=== PATIENT | female | born 1940 | race Caucasian/White ===

== ENCOUNTER → 2017-01-05 | Outpatient (CLI) | payer MEDICARE, OTHER ==
--- NOTE | 2017-01-10 10:58 | MM ---
Reason for exam: screening (asymptomatic). Last mammogram was performed 6 years and 4 months ago. History: Patient is postmenopausal. Physical Findings: A clinical breast exam by your physician is recommended on an annual basis and results should be correlated with mammographic findings. MG 3D Screening Mammo W/Cad Bilateral CC and MLO view(s) were taken. Prior study comparison: September 07, 2010, mammogram, performed at [facility]. May 13, 2009, mammogram, performed at [facility]. There are scattered fibroglandular densities. No significant changes when compared with prior studies. ASSESSMENT: Negative, BI-RAD 1 RECOMMENDATION: Routine screening mammogram of both breasts in 1 year.
== END | disposition home or self-care (01) ==
LOC: RADMAMWWP 10:54
PROVIDERS: ATTEND Family Medicine
DX: Z12.31 Encounter for screening mammogram for malignant neoplasm of breast (principal)
CPT/HCPCS: 77063; G0202

== ENCOUNTER 2017-03-21 15:14 | Emergency (ER) | payer MEDICARE, OTHER ==
[2017-03-21] MEDS ORDERED: ONDANSETRON 4 MG/2 ML VIAL IVP STA (16:55)
[2017-03-21] MEDS ORDERED: HYDROmorphone 1 MG/ML 1 ML SYRINGE IVP STA (16:55)
[2017-03-21] MEDS ORDERED: SODIUM CHLORIDE 0.9% 1,000 ML IV STA ×2 (16:55)
--- NOTE | 2017-03-21 17:16 | ED ---
General Adult HPI - General Source: patient, family, RN notes reviewed Mode of arrival: wheelchair Limitations: no limitations <Wilmer Trivedi - Last Filed: 03/21/17 19:41> <Chay Archer - Last Filed: 03/21/17 20:18> - General Chief complaint: Back Pain/Injury Stated complaint: Lower right back pain/SOB Time Seen by Provider: 03/21/17 16:51 - History of Present Illness Initial comments: Patient is a 76-year-old female who presents emergency room today with a chief complaint of increased right-sided lower back pain that began last night. She admits that she began to feel a discomfort last night. She states it increased greatly this one. She does admit that is worse with any movement. Denies any other symptoms or complaints. She denies any other associated symptoms at this time.Patient denies any recent fever, chills, shortness of breath, chest pain, numbness or tingling, dysuria or hematuria, constipation or diarrhea, headaches or visual changes, or any other complaints. (Wilmer Trivedi) - Related Data Home Medications Medication Instructions Recorded Confirmed Aspirin EC [Ecotrin Low Dose] 81 mg PO DAILY 03/21/17 03/21/17 Docusate [Colace] 100 mg PO DAILY 03/21/17 03/21/17 Losartan [Cozaar] 50 mg PO DAILY 03/21/17 03/21/17 Previous Rx's Medication Instructions Recorded Ciprofloxacin HCl [Cipro] 500 mg PO Q12HR #20 day 03/21/17 Ibuprofen [Motrin] 600 mg PO Q6HR PRN #20 day 03/21/17 Allergies Allergy/AdvReac Type Severity Reaction Status Date / Time No Known Allergies Allergy Verified 03/21/17 17:15 Review of Systems ROS Other: All systems not noted in ROS Statement are negative. <Wilmer Trivedi - Last Filed: 03/21/17 19:41> ROS Other: All systems not noted in ROS Statement are negative. <Chay Archer - Last Filed: 03/21/17 20:18> ROS Statement: Those systems with pertinent positive or pertinent negative responses have been documented in the HPI. Past Medical History Past Medical History: Hypertension History of Any Multi-Drug Resistant Organisms: None Reported Past Surgical History: Bladder Surgery, Hysterectomy Past Psychological History: No Psychological Hx Reported Smoking Status: Never smoker Past Alcohol Use History: None Reported Past Drug Use History: None Reported <Wilmer Trivedi - Last Filed: 03/21/17 19:41> General Exam Limitations: no limitations <FarooqWilmer - Last Filed: 03/21/17 19:41> <Chay Archer - Last Filed: 03/21/17 20:18> - General Exam Comments Initial Comments: General: The patient is awake and alert, in no distress, and does not appear acutely ill. Eye: Pupils are equal, round and reactive to light, extra-ocular movements are intact. No nystagmus. There is normal conjunctiva bilaterally. No signs of icterus. Ears, nose, mouth and throat: There are moist mucous membranes and no oral lesions. Neck: The neck is supple, there is no tenderness or JVD. Cardiovascular: There is a regular rate and rhythm. No murmur, rub or gallop is appreciated. Respiratory: Lungs are clear to auscultation, respirations are non-labored, breath sounds are equal. No wheezes, stridor, rales, or rhonchi. Gastrointestinal: Normal appearance for abdomen. Normal bowel sounds. Abdomen soft on palpation. No pulsatile mass. Patient tender in epigastric, right upper quadrant, right lower quadrant on exam. No rebound tenderness. Guarding. Mild right-sided CVA tenderness. Musculoskeletal: Normal ROM, no tenderness. Strength 5/5. Sensation intact. Pulses equal bilaterally 2+. Neurological: A&O x 3. CN II-XII intact, There are no obvious motor or sensory deficits. Coordination appears grossly intact. Speech is normal. Skin: Skin is warm and dry and no rashes or lesions are noted. Psychiatric: Cooperative, appropriate mood & affect, normal judgment. (Farooq Wilmer) Course <FarooqWilmer - Last Filed: 03/21/17 19:41> <Chay Archer - Last Filed: 03/21/17 20:18> Vital Signs 03/21/17 03/21/17 15:33 19:56 Temperature 97.7 F 97.0 F L Pulse Rate 79 64 Respiratory 18 16 Rate Blood Pressure 180/86 133/68 O2 Sat by Pulse 97 98 Oximetry - Reevaluation(s) Reevaluation #1: 03/21/17 20:17 I did do a [id number] examination the patient did discuss findings with her and her family. Patient has a reproducible pain to palpation of the right SI joint area. Patient initially did not get much relief the medication was rendered she was given Toradol shot which did help the pain. Her presentation is consistent with musculoskeletal pain as well as a UTI. 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 Patient will be discharged on appropriate medication with follow-up with her doctor and return when necessary (Chay Archer) Medical Decision Making - Lab Data Result diagrams: 03/21/17 17:21 03/21/17 17:21 <Wilmer Trivedi - Last Filed: 03/21/17 19:41> - Lab Data Result diagrams: 03/21/17 17:21 03/21/17 17:21 <Chay Archer - Last Filed: 03/21/17 20:18> - Medical Decision Making His x-ray reviewed and is unremarkable for any acute abnormalities. Results were discussed with the patient. Labs been reviewed. Patient's urinalysis does show positive nitrate with white cells. Has been given a dose of Rocephin here in the emergency room. Case was discussed with attending physician and seen at bedside by Dr. Archer. Patient advised follow-up family doctor in the next 1-2 days. (Wilmer Trivedi) - Lab Data Lab Results 03/21/17 03/21/17 03/21/17 Range/Units 17:21 17:21 17:21 WBC 9.6 (3.8-10.6) k/uL RBC 4.64 (3.80-5.40) m/uL Hgb 14.5 (11.4-16.0) gm/dL Hct 43.2 (34.0-46.0) % MCV 93.1 (80.0-100.0) fL MCH 31.2 (25.0-35.0) pg MCHC 33.5 (31.0-37.0) g/dL RDW 13.4 (11.5-15.5) % Plt Count 242 (150-450) k/uL Neutrophils % 66 % Lymphocytes % 27 % Monocytes % 4 % Eosinophils % 2 % Basophils % 1 % Neutrophils # 6.3 (1.3-7.7) k/uL Lymphocytes # 2.6 (1.0-4.8) k/uL Monocytes # 0.3 (0-1.0) k/uL Eosinophils # 0.2 (0-0.7) k/uL Basophils # 0.1 (0-0.2) k/uL Sodium 139 (137-145) mmol/L Potassium 4.7 (3.5-5.1) mmol/L Chloride 109 H (98-107) mmol/L Carbon Dioxide 23 (22-30) mmol/L Anion Gap 7 mmol/L BUN 23 H (7-17) mg/dL Creatinine 1.06 H (0.52-1.04) mg/dL Est GFR (MDRD) Af Amer >60 (>60 ml/min/1.73 sqM) Est GFR (MDRD) Non-Af 50 (>60 ml/min/1.73 sqM) Glucose 92 (74-99) mg/dL Plasma Lactic Acid Rio 1.1 (0.7-2.0) mmol/L Calcium 10.2 (8.4-10.2) mg/dL Total Bilirubin 0.5 (0.2-1.3) mg/dL AST 17 (14-36) U/L ALT 20 (9-52) U/L Alkaline Phosphatase 73 (38-126) U/L Total Protein 7.3 (6.3-8.2) g/dL Albumin 4.2 (3.5-5.0) g/dL Amylase 69 (30-110) U/L Lipase 76 (23-300) U/L Urine Color Urine Appearance (Clear) Urine pH (5.0-8.0) Ur Specific [place] (1.001-1.035) Urine Protein (Negative) Urine Glucose (UA) (Negative) Urine Ketones (Negative) Urine Blood (Negative) Urine Nitrite (Negative) Urine Bilirubin (Negative) Urine Urobilinogen (<2.0) mg/dL Ur Leukocyte Esterase (Negative) Urine RBC (0-5) /hpf Urine WBC (0-5) /hpf Urine Bacteria (None) /hpf Hyaline Casts (0-2) /lpf 03/21/17 Range/Units 17:30 WBC (3.8-10.6) k/uL RBC (3.80-5.40) m/uL Hgb (11.4-16.0) gm/dL Hct (34.0-46.0) % MCV (80.0-100.0) fL MCH (25.0-35.0) pg MCHC (31.0-37.0) g/dL RDW (11.5-15.5) % Plt Count (150-450) k/uL Neutrophils % % Lymphocytes % % Monocytes % % Eosinophils % % Basophils % % Neutrophils # (1.3-7.7) k/uL Lymphocytes # (1.0-4.8) k/uL Monocytes # (0-1.0) k/uL Eosinophils # (0-0.7) k/uL Basophils # (0-0.2) k/uL Sodium (137-145) mmol/L Potassium (3.5-5.1) mmol/L Chloride (98-107) mmol/L Carbon Dioxide (22-30) mmol/L Anion Gap mmol/L BUN (7-17) mg/dL Creatinine (0.52-1.04) mg/dL Est GFR (MDRD) Af Amer (>60 ml/min/1.73 sqM) Est GFR (MDRD) Non-Af (>60 ml/min/1.73 sqM) Glucose (74-99) mg/dL Plasma Lactic Acid [place] (0.7-2.0) mmol/L Calcium (8.4-10.2) mg/dL Total Bilirubin (0.2-1.3) mg/dL AST (14-36) U/L ALT (9-52) U/L Alkaline Phosphatase (38-126) U/L Total Protein (6.3-8.2) g/dL Albumin (3.5-5.0) g/dL Amylase (30-110) U/L Lipase (23-300) U/L Urine Color Light Yellow Urine Appearance Clear (Clear) Urine pH 6.0 (5.0-8.0) Ur Specific [place] 1.004 (1.001-1.035) Urine Protein Negative (Negative) Urine Glucose (UA) Negative (Negative) Urine Ketones Negative (Negative) Urine Blood Negative (Negative) Urine Nitrite Positive H (Negative) Urine Bilirubin Negative (Negative) Urine Urobilinogen <2.0 (<2.0) mg/dL Ur Leukocyte Esterase Moderate H (Negative) Urine RBC <1 (0-5) /hpf Urine WBC 9 H (0-5) /hpf Urine Bacteria Moderate H (None) /hpf Hyaline Casts 1 (0-2) /lpf Disposition Time of Disposition: 19:42 <Wilmer Trivedi - Last Filed: 03/21/17 19:41> <Chay Archer - Last Filed: 03/21/17 20:18> Clinical Impression: UTI (urinary tract infection), Acute low back pain Disposition: HOME SELF-CARE Condition: Good Instructions: Acute Low Back Pain (ED) Additional Instructions: Please use medication as discussed. Please follow-up with family doctor in the next 2 days of symptoms have not improved. Please return to emergency room if the symptoms increase or worsen or for any other concerns. Prescriptions: Ciprofloxacin HCl [Cipro] 500 mg PO Q12HR #20 day Ibuprofen [Motrin] 600 mg PO Q6HR PRN #20 day PRN Reason: Pain Referrals: Roz Saleem MD [Primary Care Provider] - 1-2 days
[2017-03-21 17:37] LABS: Basophils # (A) 0.1 k/uL (0-0.2); Basophils % (A) 1 %; CHCM 34.5; Eosinophils # (A) 0.2 k/uL (0-0.7); Eosinophils % (A) 2 %; HCT 43.2 % (34.0-46.0); HDW 2.51; HGB 14.5 gm/dL (11.4-16.0); Luc # (Auto) 0.15; Luc % (Auto) 2; Lymphocytes # (A) 2.6 k/uL (1.0-4.8); Lymphocytes % (A) 27 %; MCH 31.2 pg (25.0-35.0); MCHC 33.5 g/dL (31.0-37.0); MCV 93.1 fL (80.0-100.0); Mean Platelet Volume 6.7; Monocytes # (A) 0.3 k/uL (0-1.0); Monocytes % (A) 4 %; Neutrophils # (A) 6.3 k/uL (1.3-7.7); Neutrophils % (A) 66 %; RBC 4.64 m/uL (3.80-5.40); RDW 13.4 % (11.5-15.5); WBC 9.6 k/uL (3.8-10.6); WBC (Perox) 9.77
[2017-03-21 17:44] LABS: ALT 20 U/L (9-52); AST 17 U/L (14-36); Alkaline Phosphatase 73 U/L (38-126); Amylase 69 U/L (30-110); Anion Gap 7 mmol/L; Blood Urea Nitrogen 23 mg/dL (7-17); Calcium 10.2 mg/dL (8.4-10.2); Carbon Dioxide 23 mmol/L (22-30); Chloride 109 mmol/L (98-107); Glucose 92 mg/dL (74-99); Non-African American GFR(MDRD) 50 (>60 ml/min/1.73 sqM); Potassium 4.7 mmol/L (3.5-5.1); Sodium 139 mmol/L (137-145); Total Bilirubin 0.5 mg/dL (0.2-1.3); Total Protein 7.3 g/dL (6.3-8.2)
[2017-03-21 17:55] LABS: Appearance,Urine Clear (Clear); Bacteria,Urine Moderate /hpf; Bilirubin,Urine Negative (Negative); Glucose,Urine (UA) Negative (Negative); Ketones,Urine Negative (Negative); Leukocyte Esterase,Urine Moderate (Negative); Nitrite,Urine Positive (Negative); Particle Count 16917; Protein,Urine Negative (Negative); RBC,Urine <1 /hpf (0-5); Specific Gravity,Urine 1.004 (1.001-1.035); UA Billing (MACRO vs. MICRO) MICRO; Urobilinogen,Urine <2.0 mg/dL (<2.0); WBC,Urine 9 /hpf (0-5)
--- NOTE | 2017-03-21 17:57 | XR ---
EXAMINATION TYPE: XR KUB DATE OF EXAM: 03/21/2017 5:54 PM COMPARISON: NONE HISTORY: Right-sided abdominal pain TECHNIQUE: 2 views FINDINGS: There is no sign of intestinal obstruction or pneumoperitoneum. Fecal pattern is normal. Th ere are clips from cholecystectomy. There is no sign of a mass. There is mild thoracolumbar levoscoli osis. IMPRESSION: Nonacute abdomen.
[2017-03-21] MEDS ORDERED: RX INFO: IV CONTRAST WAS GIVEN 1 EACH MISC MISCELLANE PRN (18:17)
--- NOTE | 2017-03-21 19:23 | CT ---
EXAMINATION TYPE: CT abdomen pelvis w con DATE OF EXAM: 03/21/2017 6:54 PM COMPARISON: NONE HISTORY: Right flank pain today. CT DLP: 469.60 mGycm Automated exposure control for dose reduction was used. TECHNIQUE: Helical acquisition of images was performed from the lung bases through the pelvis. CONTRAST: Performed without Oral Contrast and with IV Contrast, patient injected with 80 mL of Visipaque 320. FINDINGS: Lung bases are clear of consolidation. There is mild subsegmental atelectasis at the posterior lung b ases. There is no pleural effusion. Liver spleen pancreas appear normal. There are clips from cholecystectomy. Bile ducts are not dilated . There is no adrenal mass. Kidneys show satisfactory contrast opacification. There is no hydronephro sis. There is no retroperitoneal adenopathy. Abdominal aorta is atheromatous. There is no ascites. Th ere are a few sigmoid diverticula. There is no sign of diverticulitis. Bladder distends smoothly. I s ee no pelvic mass. Appendix is not seen. There is no sign of appendicitis. Bony structures are intact . IMPRESSION: NO EVIDENCE OF RENAL STONE OR OBSTRUCTION. ATHEROSCLEROTIC VASCULAR DISEASE. I DO NOT SEE A CAUSE FOR RIGHT FLANK PAIN.
[2017-03-21] MEDS ORDERED: KETOROLAC 30 MG/ML 1 ML VIAL IVP STA (19:41)
[2017-03-21 20:02] VITALS: BP 133/68; PULSE 64; RESP 16; TEMP 97
[2017-03-21] MEDS ORDERED: IBUPROFEN 600 MG STARTER PACK 4 TAB BTL PO STA (20:07)
== END 2017-03-21 20:16 | disposition home or self-care (01) ==
LOC: EC 15:14
DX: N39.0 Urinary tract infection, site not specified (principal); M54.5 Low back pain; I10 Essential (primary) hypertension; Z79.82 Long term (current) use of aspirin; Z79.899 Other long term (current) drug therapy; Z90.710 Acquired absence of both cervix and uterus; Z98.890 Other specified postprocedural states
CPT/HCPCS: 36415; 80053; 82150; 83605; 83690; 85025; 81001; 87086; 74000; 74177; 99284; 96365; 96375 ×3; 96361 ×2; Q9967; J2405; J0696; J1885; J1170; 87077; 87186

== ENCOUNTER → 2020-01-08 | Outpatient (CLI) | payer MEDICARE ==
--- NOTE | 2020-01-08 12:08 | FL ---
MODIFIED SWALLOW / DEGLUTITION STUDY DATE OF EXAM: 01/08/2020 CLINICAL HISTORY: 79-year-old female with dysphasia, weakness, coughing. TECHNIQUE: Deglutition study is performed utilizing thin liquid barium, barium pudding, and barium c oated cracker. Total fluoroscopy time: 3 minutes 53 seconds. Total images: None. Real-time fluoroscopy support was provided to speech pathology. COMPARISON: None. FINDINGS: Swallow initiation was mildly delayed. The oral phase shows tongue pumping and delayed AP transit. There is aspiration of pureed and solid consistencies with blunted cough reflex. No penetration or as piration is seen of the liquid. We do note some intraesophageal reflux and there was an episode of emesis/retching. Mild residuals. IMPRESSION: 1. Aspiration of pureed and solid consistencies with blunted cough reflex. 2. Mildly delayed swallow initiation and some tongue pumping resulting in prolonged AP transit in the oral phase. 3. Some intraesophageal reflux is noted with an episode of emesis/retching. Consider esophagram to fu rther evaluate esophageal motility and exclude any stricture or gastroesophageal reflux/hiatal hernia . Please refer to speech therapist notes for further details if necessary.
== END | disposition home or self-care (01) ==
LOC: RADFLMAIN 10:20
PROVIDERS: ATTEND Family Medicine
DX: K21.9 Gastro-esophageal reflux disease without esophagitis (principal)
CPT/HCPCS: 74230

== ENCOUNTER 2021-07-02 07:42 | Inpatient (IN) | payer MEDICARE ==
[2021-07-02] MEDS ORDERED: ACETAMINOPHEN TAB 325 MG TAB PO STA (07:52)
--- NOTE | 2021-07-02 08:39 | XR ---
EXAMINATION TYPE: XR ankle complete RT DATE OF EXAM: 07/02/2021 COMPARISON: NONE HISTORY: 80-year-old female pain after falling TECHNIQUE: 3 views FINDINGS: Soft tissue swelling circumferentially at the ankle. Vascular calcifications suggest underlying diabe alli and chronic kidney disease. There is a vague vertically oriented lucency projecting across the body of the talus that may be proj ectional given obliquity on the lateral projection. All plantar heel spur. Talar dome appears intact. Osteopenia. IMPRESSION: 1. Osteopenia and generalized soft tissue swelling. 2. Vague vertically oriented lucency seen across the body of the talus on the lateral view may be pro jectional due to obliquity. If the patient is having significant pain and there is concern for underl lucas fracture, consider dedicated foot radiographs. Careful positioning of the lateral view is recomm ended.
--- NOTE | 2021-07-02 09:08 | XR ---
EXAMINATION TYPE: XR foot complete RT DATE OF EXAM: 07/02/2021 COMPARISON: NONE HISTORY: 80-year-old female pain after falling, talus fracture TECHNIQUE: 3 views FINDINGS: Prominent dorsal hindfoot soft tissue swelling. There remains some irregularity along the dorsal tess ical margin of the talar body. Findings remain suspicious for fracture along the talar body. Vascular calcifications suggest underlying diabetes and chronic kidney disease. Osteopenia. IMPRESSION: Findings along the talar body remain suspicious for possible nondisplaced fracture. Overlying soft ti ssue swelling.
--- NOTE | 2021-07-02 10:43 | ED ---
Lower Extremity Injury HPI - General Chief Complaint: Extremity Injury, Lower Stated Complaint: Fall/ankle injury Time Seen by Provider: 07/02/21 07:45 Source: EMS Mode of arrival: EMS Limitations: physical limitation - History of Present Illness Initial Comments: The patient is an 80-year-old female with past medical history of hypertension who presents to the emergency Department with reported right ankle pain. The daughter is at bedside and helps provide the history. She states that her mother was ambulating yesterday, lost her balance and twisted her right ankle. She landed with her body on top of the ankle. The patient has had difficulty p lacing weight on it. She did call an ambulance to transport the patient to the hospital. Upon evaluation the patient cannot provide much history. She does have tenderness to palpation of the medial malleolus. She denies any other injuries from the fall. Daughter states that she was able to lower her to the ground and therefore she did not sustain any head injury. The patients daughter reports that she is difficult to care for at baseline and with the recent ankle injury has been impossible for her to shower her, toilet her or transfer her. She is requesting placement of the patient. - Related Data Home Medications Medication Instructions Recorded Confirmed Aspirin EC [Ecotrin Low Dose] 81 mg PO DAILY 03/21/17 07/02/21 Docusate [Colace] 100 mg PO DAILY 03/21/17 07/02/21 Alendronate Sodium [Fosamax] 70 mg PO SA 07/02/21 07/02/21 Atorvastatin [Lipitor] 20 mg PO DAILY 07/02/21 07/02/21 Donepezil [Aricept] 10 mg PO DAILY 07/02/21 07/02/21 Loratadine [Claritin] 10 mg PO DAILY 07/02/21 07/02/21 Allergies Allergy/AdvReac Type Severity Reaction Status Date / Time No Known Allergies Allergy Verified 07/02/21 12:00 Review of Systems ROS Statement: Those systems with pertinent positive or pertinent negative responses have been documented in the HPI. ROS Other: All systems not noted in ROS Statement are negative. Past Medical History Past Medical History: Hypertension History of Any Multi-Drug Resistant Organisms: None Reported Past Surgical History: Bladder Surgery, Hysterectomy Past Psychological History: No Psychological Hx Reported Past Alcohol Use History: None Reported Past Drug Use History: None Reported General Exam Limitations: altered mental status General appearance: alert, in no apparent distress Head exam: Present: atraumatic, normocephalic Respiratory exam: Present: normal lung sounds bilaterally. Absent: respiratory distress, wheezes, rales, rhonchi, stridor Cardiovascular Exam: Present: regular rate, normal rhythm, normal heart sounds. Absent: systolic murmur, diastolic murmur, rubs, gallop, clicks GI/Abdominal exam: Present: soft, normal bowel sounds. Absent: distended, tenderness, guarding, rebound, rigid Extremities exam: Present: normal capillary refill, other (tenderness to palpation of the right malleolus. No joint swelling. <2 sec cap refill. 2+ DP and PT pulses bilaterally. ). Absent: pedal edema, joint swelling Neurological exam: Present: alert Psychiatric exam: Present: flat affect Skin exam: Present: warm, dry, intact Course Vital Signs 07/02/21 07/02/21 07/02/21 07:55 11:00 14:58 Temperature 97.9 F 98.6 F Pulse Rate 69 61 Pulse Rate [ 71 Pulse Oximetery ] Respiratory 16 18 16 Rate Blood Pressure 203/89 177/90 Blood Pressure 197/100 [Left Arm Supine] O2 Sat by Pulse 100 96 97 Oximetry 07/02/21 07/02/21 18:00 19:42 Temperature 98.2 F Pulse Rate 82 Pulse Rate [ Pulse Oximetery ] Respiratory 18 Rate Blood Pressure 178/84 Blood Pressure 181/105 [Left Arm Supine] O2 Sat by Pulse 98 Oximetry - Reevaluation(s) Reevaluation #1: 07/02/21 10:43 Spoke with Zakia about right ankle pain and questionable fracture -request CT of ankle Medical Decision Making - Medical Decision Making On arrival patient was placed into room 12. A thorough history and physical exam was performed. X-rays obtained of the patient's right ankle which demonstrates a possible talar fracture. A dedicated foot x-ray was performed wh ich she needs to demonstrate a concern for a talus fracture. Because of this I did speak with ortho who is requesting splint and follow-up. I discussed this with the patient's family states that they're having too much difficulty caring for the patient. Because of this orthopedics then request a CT of the lower extremity. This is reviewed and demonstrates no evidence of displaced fracture at this time. Orthopedics feels that the patient may follow up outpatient and does not need to be admitted to their service for this issue. As the daughter is having significant difficulties taking care of the patient laboratory studies were obtained which demonstrated white count of 12.4. Urinalysis is grossly positive for urinary tract infection. She was given a dose of Rocephin. Spoke with Dr. Estrella who agreed to admit the patient. Patient awaiting a bed on the floor in stable condition - Lab Data Result diagrams: 07/03/21 06:10 07/03/21 06:10 Lab Results 07/02/21 07/02/21 07/02/21 Range/Units 11:03 11:03 11:03 WBC 12.4 H (3.8-10.6) k/uL RBC 4.96 (3.80-5.40) m/uL Hgb 15.3 (11.4-16.0) gm/dL Hct 46.7 H (34.0-46.0) % MCV 94.1 (80.0-100.0) fL MCH 30.8 (25.0-35.0) pg MCHC 32.7 (31.0-37.0) g/dL RDW 13.8 (11.5-15.5) % Plt Count 237 (150-450) k/uL MPV 7.8 Neutrophils % 84 % Lymphocytes % 11 % Monocytes % 3 % Eosinophils % 1 % Basophils % 0 % Neutrophils # 10.4 H (1.3-7.7) k/uL Lymphocytes # 1.4 (1.0-4.8) k/uL Monocytes # 0.3 (0-1.0) k/uL Eosinophils # 0.1 (0-0.7) k/uL Basophils # 0.1 (0-0.2) k/uL PT 9.6 (9.0-12.0) sec INR 0.9 (<1.2) APTT 21.7 L (22.0-30.0) sec Sodium (137-145) mmol/L Potassium (3.5-5.1) mmol/L Chloride (98-107) mmol/L Carbon Dioxide (22-30) mmol/L Anion Gap mmol/L BUN (7-17) mg/dL Creatinine (0.52-1.04) mg/dL Est GFR (CKD-EPI)AfAm (>60 ml/min/1.73 sqM) Est GFR (CKD-EPI)NonAf (>60 ml/min/1.73 sqM) Glucose (74-99) mg/dL Plasma Lactic Acid [place] (0.7-2.0) mmol/L Calcium (8.4-10.2) mg/dL Total Bilirubin (0.2-1.3) mg/dL AST (14-36) U/L ALT (4-34) U/L Alkaline Phosphatase (38-126) U/L Troponin I (0.000-0.034) ng/mL Total Protein (6.3-8.2) g/dL Albumin (3.5-5.0) g/dL Urine Color Yellow Urine Appearance Turbid H (Clear) Urine pH 7.0 (5.0-8.0) Ur Specific [place] 1.025 (1.001-1.035) Urine Protein 1+ H (Negative) Urine Glucose (UA) Negative (Negative) Urine Ketones 1+ H (Negative) Urine Blood Small H (Negative) Urine Nitrite Negative (Negative) Urine Bilirubin Negative (Negative) Urine Urobilinogen 6.0 (<2.0) mg/dL Ur Leukocyte Esterase Moderate H (Negative) Urine RBC 10 H (0-5) /hpf Urine WBC 21 H (0-5) /hpf Ur Squamous Epith Cells 5 H (0-4) /hpf Amorphous Sediment Moderate H (None) /hpf Urine Bacteria Moderate H (None) /hpf Urine Mucus Rare H (None) /hpf 07/02/21 07/02/21 07/02/21 Range/Units 11:03 11:03 11:03 WBC (3.8-10.6) k/uL RBC (3.80-5.40) m/uL Hgb (11.4-16.0) gm/dL Hct (34.0-46.0) % MCV (80.0-100.0) fL MCH (25.0-35.0) pg MCHC (31.0-37.0) g/dL RDW (11.5-15.5) % Plt Count (150-450) k/uL MPV Neutrophils % % Lymphocytes % % Monocytes % % Eosinophils % % Basophils % % Neutrophils # (1.3-7.7) k/uL Lymphocytes # (1.0-4.8) k/uL Monocytes # (0-1.0) k/uL Eosinophils # (0-0.7) k/uL Basophils # (0-0.2) k/uL PT (9.0-12.0) sec INR (<1.2) APTT (22.0-30.0) sec Sodium 140 (137-145) mmol/L Potassium 4.8 (3.5-5.1) mmol/L Chloride 109 H (98-107) mmol/L Carbon Dioxide 23 (22-30) mmol/L Anion Gap 8 mmol/L BUN 24 H (7-17) mg/dL Creatinine 1.04 (0.52-1.04) mg/dL Est GFR (CKD-EPI)AfAm 58 (>60 ml/min/1.73 sqM) Est GFR (CKD-EPI)NonAf 50 (>60 ml/min/1.73 sqM) Glucose 113 H (74-99) mg/dL Plasma Lactic Acid [place] 1.2 (0.7-2.0) mmol/L Calcium 9.9 (8.4-10.2) mg/dL Total Bilirubin 0.5 (0.2-1.3) mg/dL AST 27 (14-36) U/L ALT 17 (4-34) U/L Alkaline Phosphatase 76 (38-126) U/L Troponin I <0.012 (0.000-0.034) ng/mL Total Protein 7.1 (6.3-8.2) g/dL Albumin 4.3 (3.5-5.0) g/dL Urine Color Urine Appearance (Clear) Urine pH (5.0-8.0) Ur Specific [place] (1.001-1.035) Urine Protein (Negative) Urine Glucose (UA) (Negative) Urine Ketones (Negative) Urine Blood (Negative) Urine Nitrite (Negative) Urine Bilirubin (Negative) Urine Urobilinogen (<2.0) mg/dL Ur Leukocyte Esterase (Negative) Urine RBC (0-5) /hpf Urine WBC (0-5) /hpf Ur Squamous Epith Cells (0-4) /hpf Amorphous Sediment (None) /hpf Urine Bacteria (None) /hpf Urine Mucus (None) /hpf - EKG Data EKG Comments: EKG demonstrates normal sinus rhythm with a ventricular rate of 62. ND interval 122. QRS 74. QTC of 430. No acute ST segment elevations or depressions concerning for ischemic changes Disposition Clinical Impression: Ankle pain, right, Weakness, UTI (urinary tract infection), Hypertension Disposition: ADMITTED IP TO THIS HOSP Condition: Stable Is patient prescribed a controlled substance at d/c from ED?: No Decision to Admit Reason: Admit from EC Decision Date: 07/02/21 Decision Time: 12:56
[2021-07-02 11:36] LABS: Basophils # (A) 0.1 k/uL (0-0.2); Basophils % (A) 0 %; Eosinophils # (A) 0.1 k/uL (0-0.7); Eosinophils % (A) 1 %; HCT 46.7 % (34.0-46.0); HGB 15.3 gm/dL (11.4-16.0); Lymphocytes # (A) 1.4 k/uL (1.0-4.8); Lymphocytes % (A) 11 %; MCH 30.8 pg (25.0-35.0); MCHC 32.7 g/dL (31.0-37.0); MCV 94.1 fL (80.0-100.0); Mean Platelet Volume 7.8; Monocytes # (A) 0.3 k/uL (0-1.0); Monocytes % (A) 3 %; Neutrophils # (A) 10.4 k/uL (1.3-7.7); Neutrophils % (A) 84 %; Platelet Count 237 k/uL (150-450); RBC 4.96 m/uL (3.80-5.40); RDW 13.8 % (11.5-15.5); WBC 12.4 k/uL (3.8-10.6)
--- NOTE | 2021-07-02 11:36 | CT ---
EXAMINATION TYPE: CT ankle RT wo con DATE OF EXAM: 07/02/2021 COMPARISON: Plain film radiographs 07/02/2021 HISTORY: Right talus fracture CT DLP: [address] of the right ankle with reconstruction imaging. TECHNIQUE: Unenhanced CT of the right shoulder was performed with bone and soft tissue window setting s submitted in the axial coronal and sagittal planes. At a separate workstation 3-D TR imaging was o btained. FINDINGS: There is diffuse bony osteoporosis noted. I do not see evidence for a displaced talar fract ure. No fracture is seen within the [id number]. Mild soft tissue swelling noted laterally. Joint s paces are fairly well preserved for the patient's age group. No bony destructive process seen. Vascul ar calcifications identified. Scarring. IMPRESSION: 1. No evidence for displaced fracture at this time.
[2021-07-02 11:46] LABS: Albumin 4.3 g/dL (3.5-5.0); Calcium 9.9 mg/dL (8.4-10.2); Total Bilirubin 0.5 mg/dL (0.2-1.3); Total Protein 7.1 g/dL (6.3-8.2)
[2021-07-02 12:05] LABS: Potassium 4.8 mmol/L (3.5-5.1)
[2021-07-02 12:19] LABS: INR 0.9 (<1.2); Prothrombin Time 9.6 sec (9.0-12.0)
[2021-07-02 12:23] LABS: Partial Thromboplastin Time 21.7 sec (22.0-30.0)
[2021-07-02 12:52] LABS: Amorphous Sediment,Urine Moderate /hpf; Appearance,Urine Turbid (Clear); Bacteria,Urine Moderate /hpf; Bilirubin,Urine Negative (Negative); Blood,Urine Small (Negative); Color,Urine Yellow; Glucose,Urine (UA) Negative (Negative); Ketones,Urine 1+ (Negative); Leukocyte Esterase,Urine Moderate (Negative); Mucus,Urine Rare /hpf; Nitrite,Urine Negative (Negative); Protein,Urine 1+ (Negative); RBC,Urine 10 /hpf (0-5); Specific Gravity,Urine 1.025 (1.001-1.035); Squamous Epithelial Cell,Urine 5 /hpf (0-4); WBC,Urine 21 /hpf (0-5)
[2021-07-02] MEDS ORDERED: NALOXONE 0.4 MG/ML 1 ML VIAL IV PRN (12:59)
[2021-07-02] MEDS ORDERED: cefTRIAXone IN SWFI 1,000 MG/10 ML SYRINGE IVP STA (13:07)
--- NOTE | 2021-07-02 20:58 | HP ---
HISTORY AND PHYSICAL DATE OF SERVICE: 07/02/2021 CHIEF COMPLAINTS: Fall and ankle injury. HISTORY OF PRESENT ILLNESS: This 80-year-old woman with a past medical history of multiple medical problems, including hypertension, history of bladder surgery, hysterectomy, being followed by Dr. Roche in the outpatient setting, was complaining of right ankle pain. The patient lost her balance and the right ankle. The patient's body landed on top of the ankle. The patient had difficulty in placing weight on it, and the patient came to [facility] and was admitted for further evaluation and treatment. There is no history of any fever, rigors or chills. No history of headache, loss of consciousness, seizures. Patient is mildly confused. PAST MEDICAL HISTORY: Hypertension, history of bladder surgery, hysterectomy. MEDICATIONS: Medications prior to admission included Claritin, Aricept, Colace, Lipitor, Ecotrin, Fosamax. ALLERGIES: NONE. Family history, social history, review of systems could not be taken. PHYSICAL EXAMINATION: Patient is alert, oriented x1. Pulse 82, blood pressure 178/84, respiration 18, temperature 98.2, pulse ox 98% on room air. HEENT: Conjunctivae normal. NECK: No jugular venous distention. CARDIOVASCULAR: S1, S2 muffled. RESPIRATION: Breath sounds diminished at the bases. A few scattered rhonchi and crackles. ABDOMEN: Soft, obese, non-tender. LEGS: No edema. No swelling. NERVOUS SYSTEM: Diffusely weak. Tone is also increased. SKIN: No ulcer, rash, bleeding. JOINTS: No active deforming arthropathy. LABS: WBC 12.2, hemoglobin 15.3, sodium 140, potassium 4.8. BUN is 24. UA noted. ASSESSMENT: 1. Fall and gait dysfunction. 2. Change in mental status, acute on chronic metabolic encephalopathy, possibly dementia. 3. Rule out Parkinson's. 4. Acute urinary tract infection, present on admission. 5. Right ankle strain. 6. Increased white count. 7. History of hypertension. 8. History of bladder surgery. 9. History of hysterectomy. 10.FULL CODE. RECOMMENDATIONS AND DISCUSSION: In this 80-year-old woman who presented with multiple complex medical issues, we will monitor the patient closely, continue the current medications, continue symptomatic treatment. I would recommend a CT of the brain as well as PT/OT evaluation. Empiric antibiotics. Prognosis is guarded because of multiple complex medical issues. Further recommendations to follow. A copy of this dictation is being forwarded to Dr. Roche, who is the primary physician. We will also consider rehab if the patient continues to be weak and evaluate for any safety reasons. MMKIMBERLYL / IJN: [id number] / MTDD
--- NOTE | 2021-07-02 21:03 | CT ---
EXAMINATION: CT BRAIN WO CON DATE AND TIME: 07/02/2021 8:38 PM CLINICAL INDICATION: dementia TECHNIQUE: Standard departmental protocol.; 1264.1; COMPARISON: None. FINDINGS: The calvarium is intact. There is no intracranial hemorrhage. There is no intracranial mass or mass effect. No definite new intra-axial or extra-axial attenuation defect. The paranasal sinuses, middle ear cavities, and mastoid sinus air cells are clear. The orbits are unremarkable. IMPRESSION: NO ACUTE PROCESS.
[2021-07-02] MEDS: HEPARIN SODIUM,PORCINE/PF 5,000 UNIT/0.5 ML SYRINGE SQ SCH (23:07)
[2021-07-03] MEDS: DONEPEZIL 10 MG TAB PO SCH (08:42)
[2021-07-03] MEDS: ATORVASTATIN 20 MG TAB PO SCH (08:42)
[2021-07-03] MEDS: ASPIRIN 81 MG PO SCH (08:42)
[2021-07-03] MEDS: PANTOPRAZOLE 40 MG TABLET PO SCH (08:42)
[2021-07-03] MEDS: DOCUSATE 100 MG CAP PO SCH (08:42)
[2021-07-03] MEDS: HEPARIN SODIUM,PORCINE/PF 5,000 UNIT/0.5 ML SYRINGE SQ SCH ×2 (08:42→20:29)
[2021-07-03 10:24] LABS: African American GFR (CKD) 48.7 (60.0-200.0); Anion Gap 11.6 mmol/L (4.00-12.00); Calcium 9.8 mg/dL (8.7-10.3); Carbon Dioxide 23.4 mmol/L (21.6-31.8); Non-African American GFR(CKD) 42.1 (60.0-200.0); Potassium 4.3 mmol/L (3.5-5.5)
[2021-07-03 10:29] LABS: Basophils # (A) 0.05 X 10*3/uL (0.00-0.10); Basophils % (A) 0.5 %; Eosinophils # (A) 0.27 X 10*3/uL (0.04-0.35); Eosinophils % (A) 2.5 %; HGB 13.6 g/dL (12.0-15.0); Lymphocytes # (A) 2.55 X 10*3/uL (0.90-5.00); Lymphocytes % (A) 23.7 %; MCH 29.8 pg (27.0-32.0); MCHC 31.6 g/dL (32.0-37.0); MCV 94.1 fL (80.0-97.0); Mean Platelet Volume 11.4 fL (9.5-12.2); Monocytes # (A) 0.88 X 10*3/uL (0.20-1.00); Monocytes % (A) 8.2 %; Neutrophils # (A) 7.01 X 10*3/uL (1.80-7.70); Neutrophils % (A) 64.9 %; Platelet Count 223 X 10*3/uL (140-440); RBC 4.57 X 10*6/uL (4.10-5.20); RDW 13.1 % (11.5-14.5); WBC 10.78 X 10*3/uL (4.50-10.00)
[2021-07-03] MEDS: MULTIVITAMINS, THERA 1 EACH TAB PO SCH (12:44)
[2021-07-03] MEDS: THIAMINE 100 MG TAB PO SCH (12:44)
[2021-07-03] MEDS: FOLIC ACID 1 MG TAB PO SCH (12:44)
--- NOTE | 2021-07-03 18:38 | PN ---
PROGRESS NOTE DATE OF SERVICE: 07/03/2021 This 80-year-old woman who was admitted with fall and gait dysfunction is being closely monitored. The patient had a CT of the brain which showed no acute process. No chest pain. No palpitations. No fever. PHYSICAL EXAMINATION: Alert and oriented x3. Pulse 89. Blood pressure 188/84, respirations 18, temperature 98.8, pulse ox 97% on room air. HEENT: Conjunctivae normal. NECK: No JVD. CARDIOVASCULAR: S1, S2 muffled. RESPIRATORY SYSTEM: Breath sounds diminished at the bases. No rhonchi. No crackles. ABDOMEN: Soft, nontender. NERVOUS SYSTEM: No focal deficits. Right ankle is swollen. LABS: At this time WBC 10.78, other labs are glucose 128. UA noted. Urine culture is pending at this time. ASSESSMENT: 1. Fall and gait dysfunction. 2. Change in mental status, acute on chronic metabolic encephalopathy, possibly dementia. 3. Rule out Parkinson's. 4. Right ankle sprain. 5. Acute urinary tract infection present on admission, on empiric antibiotics. 6. Increased WBC. 7. History of hypertension. 8. History of bladder surgery. 9. History of hysterectomy. 10.FULL CODE. RECOMMENDATIONS AND DISCUSSION: I recommend to continue current medications, symptomatic treatment. Otherwise, uric acid only 6.6. Recommend continue the antibiotics, symptomatic treatment of the pain. Orthopedic evaluation. Otherwise DVT prophylaxis. Guarded prognosis. Further recommendations to follow. PT/OT evaluation, possible ECF rehab. JUDY / EDDIE: [id number] /
[2021-07-04] MEDS: DOCUSATE 100 MG CAP PO SCH (08:02)
[2021-07-04] MEDS: ATORVASTATIN 20 MG TAB PO SCH (08:02)
[2021-07-04] MEDS: DONEPEZIL 10 MG TAB PO SCH (08:02)
[2021-07-04] MEDS: PANTOPRAZOLE 40 MG TABLET PO SCH (08:02)
[2021-07-04] MEDS: ASPIRIN 81 MG PO SCH (08:02)
[2021-07-04] MEDS: HEPARIN SODIUM,PORCINE/PF 5,000 UNIT/0.5 ML SYRINGE SQ SCH ×2 (08:03→19:09)
--- NOTE | 2021-07-04 11:11 | P.CNOR ---
History of Present Illness - [facility] Consult date: 07/04/21 Consult reason: fracture (Right foot talus fracture) History of present illness: This is an 80-year-old female admitted through the emergency department yesterday for placement. The patient has baseline confusion and is cared for by her daughter. She reportedly has had a fall recently where she twisted her ankl e. She is unable to bear weight on the right foot. We are consulted for orthopedic evaluation. Computed tomography scan of the foot was performed Past Medical History Past Medical History: Hypertension History of Any Multi-Drug Resistant Organisms: None Reported Past Surgical History: Bladder Surgery, Hysterectomy Past Psychological History: No Psychological Hx Reported Past Alcohol Use History: None Reported Past Drug Use History: None Reported Medications and Allergies Home Medications Medication Instructions Recorded Confirmed Type Aspirin EC [Ecotrin Low Dose] 81 mg PO DAILY 03/21/17 07/02/21 History Docusate [Colace] 100 mg PO DAILY 03/21/17 07/02/21 History Alendronate Sodium [Fosamax] 70 mg PO SA 07/02/21 07/02/21 History Atorvastatin [Lipitor] 20 mg PO DAILY 07/02/21 07/02/21 History Donepezil [Aricept] 10 mg PO DAILY 07/02/21 07/02/21 History Loratadine [Claritin] 10 mg PO DAILY 07/02/21 07/02/21 History Allergies Allergy/AdvReac Type Severity Reaction Status Date / Time No Known Allergies Allergy Verified 07/02/21 12:00 Physical Examination This is a pleasantly confused 80-year-old female in no acute distress. She is alert but unable to provide any history. Exam of the head neck reveal no obvious deformity. She has slight limitation in cervical spine motion on exam no obvious tenderness to palpation about the cervical spine or paraspinal musculature. Exam the upper extremities reveals no obvious deformity. She is able to move shoulders, elbows, wrists and fingers bilaterally. Neurovascular status to the upper extremities is intact. Exam of the lower extremities reveals swelling and ecchymosis to the right foot. There is distinct tenderness to palpation about the proximal midfoot in the region of the talus. No heel tenderness. Pain with passive range of motion of the ankle. No tenderness over the metatarsals. No hip irritability. No knee pain with range of motion. Neurovascular status to the lower extremities is intact. Results X-rays of the right foot and ankle reveal a radiographic lucency about the mid body of the talus. Computed tomography scan of the right foot reveals the lucency consistent with a nondisplaced talus fracture. Degenerative changes noted as well. - Labs Labs: Microbiology - Last 24 Hours (Table) 07/02/21 11:03 Urine Culture - Final Urine,Voided Strep agalactiae - (group b) H & H 07/02/21 07/03/21 Range/Units 11:03 06:10 Hgb 15.3 13.6 (11.4-16.0) gm/dL Hct 46.7 H 43.0 (34.0-46.0) % Coagulation 07/02/21 Range/Units 11:03 INR 0.9 (<1.2) Result Diagrams: 07/03/21 06:10 07/03/21 06:10 Assessment and Plan (1) Fracture of talus of right ankle, closed Current Visit: Yes Status: Acute Code(s): S92.101A - UNSP FRACTURE OF RIGHT TALUS, INIT FOR CLOS FX SNOMED Code(s): 40947741 (2) Ankle pain, right Current Visit: Yes Status: Acute Code(s): M25.571 - PAIN IN RIGHT ANKLE AND JOINTS OF RIGHT FOOT SNOMED Code(s): 533281540 Plan: The clinical and radiographic findings are discussed with the patient and nursing staff. It is recommended that she be placed in an equalizer boot for immobilization. She should protect weightbearing for the next several weeks. She may be toe-touch weightbearing with a walker. She may have difficulty maintaining protective weightbearing status with her history of confusion. It is recommended she be placed in an extended care facility for 24-hour care and observation. She should follow-up in 3-4 weeks for follow-up x-ray of the right foot and ankle.
[2021-07-04 12:00] LABS: Basophils # (A) 0.06 X 10*3/uL (0.00-0.10); Basophils % (A) 0.7 %; Eosinophils # (A) 0.31 X 10*3/uL (0.04-0.35); Eosinophils % (A) 3.4 %; HCT 38.7 % (37.2-46.3); HGB 12.3 g/dL (12.0-15.0); Lymphocytes # (A) 2.43 X 10*3/uL (0.90-5.00); Lymphocytes % (A) 26.4 %; MCH 29.7 pg (27.0-32.0); MCHC 31.8 g/dL (32.0-37.0); MCV 93.5 fL (80.0-97.0); Monocytes # (A) 0.64 X 10*3/uL (0.20-1.00); Monocytes % (A) 6.9 %; Neutrophils # (A) 5.76 X 10*3/uL (1.80-7.70); Neutrophils % (A) 62.4 %; Platelet Count 209 X 10*3/uL (140-440); RBC 4.14 X 10*6/uL (4.10-5.20); RDW 13.1 % (11.5-14.5); WBC 9.22 X 10*3/uL (4.50-10.00)
[2021-07-04] MEDS: MULTIVITAMINS, THERA 1 EACH TAB PO SCH (12:40)
[2021-07-04] MEDS: FOLIC ACID 1 MG TAB PO SCH (12:40)
[2021-07-04] MEDS: THIAMINE 100 MG TAB PO SCH (12:40)
--- NOTE | 2021-07-04 12:50 | PN ---
PROGRESS NOTE DATE OF SERVICE: 07/04/2021 This 80-year-old woman was admitted with fall and gait dysfunction also had complaining of right ankle pain. Orthopedic Surgery has seen the patient. Ankle CT has been done. The patient has a right foot talus fracture. The patient is unable to bear any weight. No chest pain. No palpitations. No fever. PHYSICAL EXAMINATION: Alert and oriented times three. Pulse is 59, blood pressure 134/76, respirations 16, temperature 98 degrees, pulse ox 98 percent. HEENT: Conjunctivae normal. Neck: No JVD. Cardiovascular: S1, S2 muffled. Respirations: Breath sounds diminished in the bases. Abdomen: Soft. Right foot is tender. LABS: WBC 9.2, hemoglobin 12.3. Other labs are noted. Cultures show Strep agalactiae. ASSESSMENT: 1. Acute urinary tract infection with Strep agalactiae sepsis. 2. Change in mental status acute on chronic metabolic encephalopathy, possible dementia. 3. Fall and gait dysfunction. 4. Acute talus fracture right ankle, closed. 5. Rule out Parkinson's. 6. Increased WBC. 7. Hypertension. 8. History of bladder surgery. 9. History of hysterectomy. 10.FULL CODE. RECOMMENDATION: Continue current medications. Pain management. Otherwise, I would recommend Blanch and closely follow with Orthopedic surgery. Guarded prognosis. Further recommendations to follow. MMODL / IJN: [id number] /
[2021-07-04] MEDS: ACETAMINOPHEN TAB 325 MG TAB PO PRN (19:09)
[2021-07-04 22:41] LABS: African American GFR (CKD) 60.8 (60.0-200.0); Anion Gap 10.6 mmol/L (4.00-12.00); Carbon Dioxide 21.4 mmol/L (21.6-31.8); Non-African American GFR(CKD) 52.4 (60.0-200.0); Potassium 4.3 mmol/L (3.5-5.5)
[2021-07-05] MEDS: ASPIRIN 81 MG PO SCH (08:27)
[2021-07-05] MEDS: ATORVASTATIN 20 MG TAB PO SCH (08:27)
[2021-07-05] MEDS: DONEPEZIL 10 MG TAB PO SCH (08:27)
[2021-07-05] MEDS: HEPARIN SODIUM,PORCINE/PF 5,000 UNIT/0.5 ML SYRINGE SQ SCH ×2 (08:27→21:41)
[2021-07-05] MEDS: PANTOPRAZOLE 40 MG TABLET PO SCH (08:27)
[2021-07-05] MEDS: DOCUSATE 100 MG CAP PO SCH (08:27)
[2021-07-05 10:38] LABS: Basophils # (A) 0.05 X 10*3/uL (0.00-0.10); Basophils % (A) 0.6 %; Eosinophils # (A) 0.31 X 10*3/uL (0.04-0.35); Eosinophils % (A) 3.5 %; HCT 38.5 % (37.2-46.3); HGB 12.1 g/dL (12.0-15.0); Lymphocytes # (A) 2.59 X 10*3/uL (0.90-5.00); Lymphocytes % (A) 29.6 %; MCH 30.1 pg (27.0-32.0); MCHC 31.4 g/dL (32.0-37.0); MCV 95.8 fL (80.0-97.0); Mean Platelet Volume 11.5 fL (9.5-12.2); Monocytes # (A) 0.78 X 10*3/uL (0.20-1.00); Monocytes % (A) 8.9 %; Neutrophils # (A) 4.99 X 10*3/uL (1.80-7.70); Neutrophils % (A) 57.1 %; Platelet Count 238 X 10*3/uL (140-440); RBC 4.02 X 10*6/uL (4.10-5.20); RDW 13.1 % (11.5-14.5); WBC 8.75 X 10*3/uL (4.50-10.00)
[2021-07-05] MEDS: THIAMINE 100 MG TAB PO SCH (12:23)
[2021-07-05] MEDS: FOLIC ACID 1 MG TAB PO SCH (12:23)
[2021-07-05] MEDS: MULTIVITAMINS, THERA 1 EACH TAB PO SCH (12:23)
[2021-07-05 12:25] LABS: African American GFR (CKD) 48.7 (60.0-200.0); Anion Gap 9.2 mmol/L (4.00-12.00); BUN/Creat Ratio 20.83 Ratio (12.00-20.00); Carbon Dioxide 20.8 mmol/L (21.6-31.8); Non-African American GFR(CKD) 42.1 (60.0-200.0); Potassium 4.7 mmol/L (3.5-5.5)
--- NOTE | 2021-07-05 13:28 | PN ---
PROGRESS NOTE DATE OF SERVICE: 07/05/2021. HISTORY: This 80-year-old woman who was admitted with acute UTI with strep agalactiae, also had right ankle fracture. No chest pain. No palpitations. No fever. PHYSICAL EXAMINATION: Alert and oriented x3. Pulse 71, blood pressure 130/70, respirations 16, temperature 98.2, pulse ox 98% on room air. Neck supple. Respirations are clear at bases. No rhonchi no crackles. Abdomen is soft. Legs no edema. Right ankle fracture. Nervous system no focal deficit. LABS: Noted. Urine culture strep agalactiae. ASSESSMENT: 1. Acute urinary tract infection with strep agalactiae and sepsis present on admission. 2. Change in mental status, acute metabolic encephalopathy present on admission, possibly secondary to dementia and sepsis. 3. Fall and gait dysfunction. 4. Acute talus fracture in the right ankle, closed, on splint. 5. Rule out Parkinson's. 6. Increased WBC. 7. Hypertension. 8. History of bladder surgery. 9. History of hysterectomy. 10.Full code. RECOMMENDATIONS: Continue current management and symptomatic treatment. Continued antibiotics. Possible ECF rehab. Guarded prognosis. Further recommendations to follow. Recommend continued monitoring. Continue the rest of medications. Recommend a repeat UA with micro in the morning. MMODL / IJN: [id number] /
[2021-07-05] MEDS: HYDROcodone/APAP 5-325MG 1 EACH TAB PO PRN (21:41)
[2021-07-06] MEDS: ASPIRIN 81 MG PO SCH (09:21)
[2021-07-06] MEDS: FOLIC ACID 1 MG TAB PO SCH (09:21)
[2021-07-06] MEDS: PANTOPRAZOLE 40 MG TABLET PO SCH (09:21)
[2021-07-06] MEDS: DONEPEZIL 10 MG TAB PO SCH (09:22)
[2021-07-06] MEDS: DOCUSATE 100 MG CAP PO SCH (09:22)
[2021-07-06] MEDS: ATORVASTATIN 20 MG TAB PO SCH (09:22)
[2021-07-06] MEDS: MULTIVITAMINS, THERA 1 EACH TAB PO SCH (09:22)
[2021-07-06] MEDS: HEPARIN SODIUM,PORCINE/PF 5,000 UNIT/0.5 ML SYRINGE SQ SCH ×2 (09:22→19:35)
[2021-07-06] MEDS: THIAMINE 100 MG TAB PO SCH (09:22)
[2021-07-06] MEDS: HYDROcodone/APAP 5-325MG 1 EACH TAB PO PRN (09:27)
--- NOTE | 2021-07-07 03:23 | P.PN ---
Subjective Progress Note Date: 07/06/21 This is an 80-year-old female who was recently admitted with acute urinary tract infection with strep agalactiae also having a right ankle fracture and being closely monitored. Orthopedics is following closely and have recommended conservative management with a boot to the right lower extremity with outpatient follow up in 2-3 weeks for evaluation and repeat xrays. Patient continues to be confused and weak and is awaiting authorization from insurance to [facility]. Social work following. Repeat urinalysis ordered and pending. Review of systems: Constitutional: reports of fatigue, no reports of fever, or chills Cardiovascular: No reports of chest pain or palpitations Respiratory: No reports of shortness of breath or cough GI: No reports of nausea, vomiting, or diarrhea : No reports of dysuria or retention Neurovascular: reports of weakness All medications have been reviewed Objective - Vital Signs Vital signs: Vital Signs Temp 98.1 F 07/06/21 07:00 Pulse 68 07/06/21 07:00 Resp 17 07/06/21 07:00 BP 152/83 07/06/21 07:00 Pulse Ox 98 07/06/21 07:00 Intake & Output 07/05/21 07/06/21 07/06/21 18:59 06:59 18:59 Intake Total 236 Output Total 800 Balance -800 236 Intake: Oral 236 Output: Urine 800 Other: Voiding Method Bedpan Diaper External Catheter # Voids 1 - Exam Gen: This is a 80-year-old female awake, alert and oriented 2, thin built HEENT: Head is atraumatic, normocephalic. Pupils equal, round. Sclerae is anicteric. NECK: Supple. No JVD. No lymphadenopathy. No thyromegaly. LUNGS: diminished breath sounds bilaterally. No wheezes or rhonchi. No intercostal retractions. HEART: Regular rate and rhythm. No murmur. ABDOMEN: Soft. Bowel sounds are present. No masses. No tenderness. EXTREMITIES: No pedal edema. No calf tenderness. right foot boot noted with positive pulses noted and able to move toes NEUROLOGICAL: Patient is awake, alert and oriented x2. diffusely weak. - Labs CBC & Chem 7: 07/05/21 04:37 07/05/21 04:37 Assessment and Plan Assessment: Acute urinary tract infection with strep agalactiea and sepsis, present on admission Change in mental status, acute metabolic encephalopathy, present on admission, possibly secondary to dementia and sepsis gait dysfunction Acute talus fracture in the right ankle, closed, on splint Rule out Parkinson's Increased WBC Hypertension History of bladder surgery history of hysterectomy Full code Plan: Recommend to continue with current medications and symptomatic treatment. Recommend repeat urinalysis. Patient continues to be weak and will continue with conservative management of the right talus fracture with orthopedics evaluation. Recommend continued boot use with outpatient follow up in the clinic in 2-3 weeks. Social work following and awaiting authorization for ECF placement at [facility]. Due to multiple complex medical issues, prognosis remains guarded. Possible discharge in 24-48 hours.
[2021-07-07] MEDS: FOLIC ACID 1 MG TAB PO SCH (09:08)
[2021-07-07] MEDS: PANTOPRAZOLE 40 MG TABLET PO SCH (09:08)
[2021-07-07] MEDS: THIAMINE 100 MG TAB PO SCH (09:08)
[2021-07-07] MEDS: ASPIRIN 81 MG PO SCH (09:08)
[2021-07-07] MEDS: HEPARIN SODIUM,PORCINE/PF 5,000 UNIT/0.5 ML SYRINGE SQ SCH ×2 (09:09→22:18)
[2021-07-07] MEDS: MULTIVITAMINS, THERA 1 EACH TAB PO SCH (09:09)
[2021-07-07] MEDS: ATORVASTATIN 20 MG TAB PO SCH (09:09)
[2021-07-07] MEDS: DOCUSATE 100 MG CAP PO SCH (09:09)
[2021-07-07] MEDS: DONEPEZIL 10 MG TAB PO SCH (09:12)
[2021-07-07] MEDS: amLODIPine 10 MG TAB PO SCH (12:02)
[2021-07-07 14:05] LABS: Appearance,Urine Clear (Clear); Bilirubin,Urine Negative (Negative); Blood,Urine Trace (Negative); Color,Urine Light Yellow; Glucose,Urine (UA) Negative (Negative); Ketones,Urine Negative (Negative); Leukocyte Esterase,Urine Negative (Negative); Nitrite,Urine Positive (Negative); Protein,Urine Negative (Negative); RBC,Urine <1 /hpf (0-5); Squamous Epithelial Cell,Urine 2 /hpf (0-4); Urobilinogen,Urine <2.0 mg/dL (<2.0); WBC,Urine 1 /hpf (0-5)
[2021-07-08] MEDS: ACETAMINOPHEN TAB 325 MG TAB PO PRN ×2 (00:14→15:28)
[2021-07-08] MEDS: THIAMINE 100 MG TAB PO SCH (09:00)
[2021-07-08] MEDS: DONEPEZIL 10 MG TAB PO SCH (09:00)
[2021-07-08] MEDS: HEPARIN SODIUM,PORCINE/PF 5,000 UNIT/0.5 ML SYRINGE SQ SCH ×2 (09:00→20:57)
[2021-07-08] MEDS: amLODIPine 10 MG TAB PO SCH (09:00)
[2021-07-08] MEDS: ATORVASTATIN 20 MG TAB PO SCH (09:01)
[2021-07-08] MEDS: MULTIVITAMINS, THERA 1 EACH TAB PO SCH (09:01)
[2021-07-08] MEDS: DOCUSATE 100 MG CAP PO SCH (09:01)
[2021-07-08] MEDS: ASPIRIN 81 MG PO SCH (09:01)
[2021-07-08] MEDS: FOLIC ACID 1 MG TAB PO SCH (09:01)
[2021-07-08] MEDS: PANTOPRAZOLE 40 MG TABLET PO SCH (09:01)
--- NOTE | 2021-07-08 09:01 | P.PN ---
Subjective Progress Note Date: 07/07/21 This is an 80-year-old female who was recently admitted with acute urinary tract infection with strep agalactiae also having a right ankle fracture and being closely monitored. Orthopedics is following closely and have recommended conservative management with a boot to the right lower extremity with outpatient follow up in 2-3 weeks for evaluation and repeat xrays. Patient continues to be confused and weak and is awaiting authorization from insurance to [facility]. Social work following. Repeat urinalysis ordered and pending. 07/07/2021 Patient Is seen in follow-up this morning and discussed with nursing staff about obtaining urinalysis and repeat urinalysis shows some nitrates otherwise negativ e and will continue on IV ceftriaxone and we'll transition to oral antibiotics on discharge. Patient continues with equalizer boot and orthopedics following. Patient to continue with heparin subcu and does take daily aspirin 81 mg. Patient is awaiting for authorization from insurance and has been accepted to [facility] for PT/OT therapy. Review of systems: Constitutional: reports of fatigue, no reports of fever, or chills Cardiovascular: No reports of chest pain or palpitations Respiratory: No reports of shortness of breath or cough GI: No reports of nausea, vomiting, or diarrhea : No reports of dysuria or retention Neurovascular: reports of weakness All medications have been reviewed Objective - Vital Signs Vital signs: Vital Signs Temp 98.1 F 07/07/21 08:05 Pulse 68 07/07/21 13:49 Resp 16 07/07/21 13:49 BP 193/77 07/07/21 08:05 Pulse Ox 97 07/07/21 08:05 Intake & Output 07/06/21 07/07/21 07/07/21 18:59 06:59 18:59 Intake Total 472 536 Output Total 500 800 Balance -28 -264 Intake: Oral 472 536 Output: Urine 500 800 Other: Voiding Method External Catheter External Catheter # Voids 1 # Bowel Movements 0 - Exam Gen: This is a 80-year-old female awake although lethargic, alert and oriented 2, thin built HEENT: Head is atraumatic, normocephalic. Pupils equal, round. Sclerae is anicteric. NECK: Supple. No JVD. No lymphadenopathy. No thyromegaly. LUNGS: diminished breath sounds bilaterally. No wheezes or rhonchi. No intercostal retractions. HEART: Regular rate and rhythm. No murmur. ABDOMEN: Soft. Bowel sounds are present. No masses. No tenderness. EXTREMITIES: No pedal edema. No calf tenderness. right foot boot noted with positive pulses noted and able to move toes NEUROLOGICAL: Patient is awake, alert and oriented x2. diffusely weak. - Labs CBC & Chem 7: 07/05/21 04:37 07/05/21 04:37 Labs: Abnormal Lab Results - Last 24 Hours (Table) 07/07/21 Range/Units 10:00 Urine Blood Trace H (Negative) Urine Nitrite Positive H (Negative) Assessment and Plan Assessment: Acute urinary tract infection with strep agalactiea and sepsis, present on admission Change in mental status, acute metabolic encephalopathy, present on admission, possibly secondary to dementia and sepsis gait dysfunction Acute talus fracture in the right ankle, closed, on splint Rule out Parkinson's Increased WBC Hypertension History of bladder surgery history of hysterectomy Full code Plan: Recommend to continue with current medications and symptomatic treatment. repeat urinalysis showing nitrites otherwise negative and will continue with IV ceftriaxone and transition to oral antibiotics on discharge. Patient continues to be weak and will continue with conservative management of the right talus fracture with orthopedics evaluation. Recommend continued boot use with outpatient follow up in the clinic in 2-3 weeks. Social work following and awaiting authorization for ECF placement at [facility]. Due to multiple complex medical issues, prognosis remains guarded. Possible discharge in 24-48 hours.
--- NOTE | 2021-07-08 16:13 | P.PN ---
Subjective Progress Note Date: 07/08/21 This is an 80-year-old female who was recently admitted with acute urinary tract infection with strep agalactiae also having a right ankle fracture and being closely monitored. Orthopedics is following closely and have recommended conservative management with a boot to the right lower extremity with outpatient follow up in 2-3 weeks for evaluation and repeat xrays. Patient continues to be confused and weak and is awaiting authorization from insurance to [facility]. Social work following. Repeat urinalysis ordered and pending. 07/07/2021 Patient Is seen in follow-up this morning and discussed with nursing staff about obtaining urinalysis and repeat urinalysis shows some nitrates otherwise negativ e and will continue on IV ceftriaxone and we'll transition to oral antibiotics on discharge. Patient continues with equalizer boot and orthopedics following. Patient to continue with heparin subcu and does take daily aspirin 81 mg. Patient is awaiting for authorization from insurance and has been accepted to [facility] for PT/OT therapy. 07/08/2021 Patient is seen and evaluated in follow-up with no acute overnight issues. Patient is maintained on IV ceftriaxone and denies any difficulty or burning with urination. Patient continues to await authorization from insurance to [facility] for continued PT/OT therapy. Blood pressure continues to be elevated and will add additional dose of Norvasc at night and monitor closely. Review of systems: Constitutional: reports of fatigue, no reports of fever, or chills Cardiovascular: No reports of chest pain or palpitations Respiratory: No reports of shortness of breath or cough GI: No reports of nausea, vomiting, or diarrhea : No reports of dysuria or retention Neurovascular: reports of weakness All medications have been reviewed Objective - Vital Signs Vital signs: Vital Signs Temp 98.0 F 07/08/21 08:22 Pulse 65 07/08/21 08:22 Resp 16 07/08/21 08:22 BP 192/78 07/08/21 08:22 Pulse Ox 93 L 07/08/21 08:22 Intake & Output 07/07/21 07/08/21 07/08/21 18:59 06:59 18:59 Intake Total 536 200 Output Total 800 600 Balance -264 -400 Intake: Oral 536 200 Output: Urine 800 600 Other: Voiding Method External Catheter External Catheter External Catheter # Voids 1 1 # Bowel Movements 0 - Exam Gen: This is a 80-year-old female awake although lethargic, alert and oriented 2-3, thin built HEENT: Head is atraumatic, normocephalic. Pupils equal, round. Sclerae is a nicteric. NECK: Supple. No JVD. No lymphadenopathy. No thyromegaly. LUNGS: diminished breath sounds bilaterally. No wheezes or rhonchi. No intercostal retractions. HEART: Regular rate and rhythm. No murmur. ABDOMEN: Soft. Bowel sounds are present. No masses. No tenderness. EXTREMITIES: No pedal edema. No calf tenderness. right foot boot noted with positive pulses noted and able to move toes NEUROLOGICAL: Patient is awake, alert and oriented x2-3. diffusely weak. - Labs CBC & Chem 7: 07/05/21 04:37 07/05/21 04:37 Assessment and Plan Assessment: Acute urinary tract infection with strep agalactiea and sepsis, present on admission Change in mental status, acute metabolic encephalopathy, present on admission, possibly secondary to dementia and sepsis gait dysfunction Acute talus fracture in the right ankle, closed, on splint Possible Parkinson's Increased WBC Hypertension History of bladder surgery history of hysterectomy Full code Plan: Recommend to continue with current medications and symptomatic treatment. repeat urinalysis showing nitrites otherwise negative and will continue with IV ceftr iaxone and transition to oral antibiotics on discharge. Patient continues to be weak and will continue with conservative management of the right talus fracture with orthopedics evaluation. Recommend continued boot use with outpatient follow up in the clinic in 2-3 weeks. Blood pressure elevated and will add additional dose of Norvasc in the evening and monitor closely. Social work following and awaiting authorization for ECF placement at [facility]. Due to multiple complex medical issues, prognosis remains guarded. Possible discharge in 24-48 hours.
[2021-07-09] MEDS: HEPARIN SODIUM,PORCINE/PF 5,000 UNIT/0.5 ML SYRINGE SQ SCH ×2 (08:47→19:58)
[2021-07-09] MEDS: FOLIC ACID 1 MG TAB PO SCH (08:48)
[2021-07-09] MEDS: ASPIRIN 81 MG PO SCH (08:48)
[2021-07-09] MEDS: MULTIVITAMINS, THERA 1 EACH TAB PO SCH (08:48)
[2021-07-09] MEDS: ATORVASTATIN 20 MG TAB PO SCH (08:48)
[2021-07-09] MEDS: PANTOPRAZOLE 40 MG TABLET PO SCH (08:48)
[2021-07-09] MEDS: DONEPEZIL 10 MG TAB PO SCH (08:48)
[2021-07-09] MEDS: DOCUSATE 100 MG CAP PO SCH (08:48)
[2021-07-09] MEDS: THIAMINE 100 MG TAB PO SCH (08:48)
--- NOTE | 2021-07-09 15:32 | P.PN ---
Subjective Progress Note Date: 07/09/21 This is an 80-year-old female who was recently admitted with acute urinary tract infection with strep agalactiae also having a right ankle fracture and being closely monitored. Orthopedics is following closely and have recommended conservative management with a boot to the right lower extremity with outpatient follow up in 2-3 weeks for evaluation and repeat xrays. Patient continues to be confused and weak and is awaiting authorization from insurance to [facility]. Social work following. Repeat urinalysis ordered and pending. 07/07/2021 Patient Is seen in follow-up this morning and discussed with nursing staff about obtaining urinalysis and repeat urinalysis shows some nitrates otherwise negativ e and will continue on IV ceftriaxone and we'll transition to oral antibiotics on discharge. Patient continues with equalizer boot and orthopedics following. Patient to continue with heparin subcu and does take daily aspirin 81 mg. Patient is awaiting for authorization from insurance and has been accepted to [facility] for PT/OT therapy. 07/08/2021 Patient is seen and evaluated in follow-up with no acute overnight issues. Patient is maintained on IV ceftriaxone and denies any difficulty or burning with urination. Patient continues to await authorization from insurance to [facility] for continued PT/OT therapy. Blood pressure continues to be elevated and will add additional dose of Norvasc at night and monitor closely. 07/09/2021 Patient is seen in follow-up this morning currently sitting up in the chair with bilateral lower extremities elevated. Patient has been working with physical therapy along with occupational therapy and needs rehab continued PT/OT therapy as she continues to be weak requiring assistance and also difficult to maintain weightbearing on that right lower extremity. Patient does have equalizer boot in place of the right lower extremity with orthopedics following. Left foot noted with slight foot drop and needs aggressive therapy to maintain mobility. Patient continues on IV antibiotics and we'll transition to oral as patient now has no IV access. Patient denies any burning or dysuria with urination. Patient states she is tolerating diet with no reports of nausea or vomiting noted. Review of systems: Constitutional: reports of fatigue, no reports of fever, or chills Cardiovascular: No reports of chest pain or palpitations Respiratory: No reports of shortness of breath or cough GI: No reports of nausea, vomiting, or diarrhea : No reports of dysuria or retention Neurovascular: reports generalized weakness All medications have been reviewed Objective - Vital Signs Vital signs: Vital Signs Temp 97.8 F 07/09/21 08:00 Pulse 67 07/09/21 08:00 Resp 17 07/09/21 08:00 BP 161/82 07/09/21 08:00 Pulse Ox 97 07/09/21 08:00 Intake & Output 07/08/21 07/09/21 07/09/21 18:59 06:59 18:59 Intake Total 300 118 Output Total 1120 900 Balance -1120 -600 118 Intake: Oral 300 118 Output: Urine 1120 900 Other: Voiding Method External Catheter External Catheter External Catheter # Bowel Movements 1 - Exam Gen: This is a 80-year-old female awake, flat affect noted, alert and oriented 2-3, thin built HEENT: Head is atraumatic, normocephalic. Pupils equal, round. Sclerae is anicteric. NECK: Supple. No JVD. No lymphadenopathy. No thyromegaly. LUNGS: diminished breath sounds bilaterally. No wheezes or rhonchi. No intercostal retractions. HEART: Regular rate and rhythm. No murmur. ABDOMEN: Soft. Bowel sounds are present. No masses. No tenderness. EXTREMITIES: No pedal edema. No calf tenderness. right foot equalizer boot noted with positive pulses noted and able to move toes, mild left foot drop noted NEUROLOGICAL: Patient is awake, alert and oriented x2-3. diffusely weak. - Labs CBC & Chem 7: 07/05/21 04:37 07/05/21 04:37 Assessment and Plan Assessment: Acute urinary tract infection with strep agalactiea and sepsis, present on admission Change in mental status, acute metabolic encephalopathy, present on admission, possibly secondary to dementia and sepsis gait dysfunction Possible underlying dementia possible senile versus vascular Possible left foot drop Acute talus fracture in the right ankle, closed, on splint Possible Parkinson's Increased WBC, improved Hypertension History of bladder surgery history of hysterectomy Full code Plan: Recommend to continue with current medications and symptomatic treatment. Patient continues to be weak and will continue with conservative management of the right talus fracture with orthopedics evaluation. Recommend continued equalizer boot use with outpatient follow up in the clinic in 2-3 weeks. Awaiting to do [id number] with insurance as they are unavailable today [facility] following and awaiting authorization for ECF placement at [facility]. Patient has been working with physical therapy daily and needs aggressive therapy at [facility] for continued strength and mobility. Continue with weightbearing as instructed by orthopedics and instructed the patient to continue with left foot drop exercises. Due to multiple complex medical issues, prognosis remains guarded. Possible discharge in 24-48 hours.
[2021-07-09] MEDS: amLODIPine 5 MG TAB PO SCH (19:58)
[2021-07-09] MEDS ORDERED: amLODIPine 5 MG TAB PO SCH (21:00)
[2021-07-10] MEDS: PANTOPRAZOLE 40 MG TABLET PO SCH (07:50)
[2021-07-10] MEDS: ASPIRIN 81 MG PO SCH (07:51)
[2021-07-10] MEDS: ATORVASTATIN 20 MG TAB PO SCH (07:51)
[2021-07-10] MEDS: amLODIPine 5 MG TAB PO SCH ×2 (07:52→20:36)
[2021-07-10] MEDS: DONEPEZIL 10 MG TAB PO SCH (07:52)
[2021-07-10] MEDS: DOCUSATE 100 MG CAP PO SCH (07:52)
[2021-07-10] MEDS: HEPARIN SODIUM,PORCINE/PF 5,000 UNIT/0.5 ML SYRINGE SQ SCH ×2 (07:53→20:36)
[2021-07-10] MEDS: FOLIC ACID 1 MG TAB PO SCH (11:36)
[2021-07-10] MEDS: MULTIVITAMINS, THERA 1 EACH TAB PO SCH (11:36)
[2021-07-10] MEDS: THIAMINE 100 MG TAB PO SCH (11:36)
[2021-07-10] MEDS: CEPHALEXIN 250 MG CAP PO SCH ×3 (13:18→21:08)
--- NOTE | 2021-07-10 22:55 | P.PN ---
Subjective Progress Note Date: 07/10/21 This is an 80-year-old female who was recently admitted with acute urinary tract infection with strep agalactiae also having a right ankle fracture and being closely monitored. Orthopedics is following closely and have recommended conservative management with a boot to the right lower extremity with outpatient follow up in 2-3 weeks for evaluation and repeat xrays. Patient continues to be confused and weak and is awaiting authorization from insurance to [facility]. Social work following. Repeat urinalysis ordered and pending. 07/07/2021 Patient Is seen in follow-up this morning and discussed with nursing staff about obtaining urinalysis and repeat urinalysis shows some nitrates otherwise negativ e and will continue on IV ceftriaxone and we'll transition to oral antibiotics on discharge. Patient continues with equalizer boot and orthopedics following. Patient to continue with heparin subcu and does take daily aspirin 81 mg. Patient is awaiting for authorization from insurance and has been accepted to [facility] for PT/OT therapy. 07/08/2021 Patient is seen and evaluated in follow-up with no acute overnight issues. Patient is maintained on IV ceftriaxone and denies any difficulty or burning with urination. Patient continues to await authorization from insurance to [facility] for continued PT/OT therapy. Blood pressure continues to be elevated and will add additional dose of Norvasc at night and monitor closely. 07/09/2021 Patient is seen in follow-up this morning currently sitting up in the chair with bilateral lower extremities elevated. Patient has been working with physical therapy along with occupational therapy and needs rehab continued PT/OT therapy as she continues to be weak requiring assistance and also difficult to maintain weightbearing on that right lower extremity. Patient does have equalizer boot in place of the right lower extremity with orthopedics following. Left foot noted with slight foot drop and needs aggressive therapy to maintain mobility. Patient continues on IV antibiotics and we'll transition to oral as patient now has no IV access. Patient denies any burning or dysuria with urination. Patient states she is tolerating diet with no reports of nausea or vomiting noted. 07/10/2021 Patient is seen and evaluated in follow up sitting up in the chair. Peer to peer denied through insurance and awaiting appeal. Family is aware that patient may have to return home with homecare and family daughter, caregiver is working on medicaid application to assist patient placement. Patient has been working with physical therapy daily. Continued equalizer boot to the right lower extremity with toe touch weightbearing restrictions. Orthopedics planning outpatient follow up in 2 weeks. Patient currently maintained on keflex and will continue. Review of systems: Constitutional: reports of fatigue, no reports of fever, or chills Cardiovascular: No reports of chest pain or palpitations Respiratory: No reports of shortness of breath or cough GI: No reports of nausea, vomiting, or diarrhea : No reports of dysuria or retention Neurovascular: reports generalized weakness All medications have been reviewed Objective - Vital Signs Vital signs: Vital Signs Temp 97.8 F 07/10/21 08:00 Pulse 61 07/10/21 08:00 Resp 17 07/10/21 08:00 BP 166/78 07/10/21 08:00 Pulse Ox 97 07/10/21 08:00 Intake & Output 07/09/21 07/10/21 07/10/21 18:59 06:59 18:59 Intake Total 236 Output Total 1000 600 Balance -764 -600 Weight 54.431 kg Intake: Oral 236 Output: Urine 1000 600 Other: Voiding Method External Catheter Diaper External Catheter - Exam Gen: This is a 80-year-old female awake, flat affect noted, alert and oriented 2-3, thin built HEENT: Head is atraumatic, normocephalic. Pupils equal, round. Sclerae is anicteric. NECK: Supple. No JVD. No lymphadenopathy. No thyromegaly. LUNGS: diminished breath sounds bilaterally. No wheezes or rhonchi. No intercostal retractions. HEART: Regular rate and rhythm. No murmur. ABDOMEN: Soft. Bowel sounds are present. No masses. No tenderness. EXTREMITIES: No pedal edema. No calf tenderness. right foot equalizer boot noted with positive pulses noted and able to move toes, mild left foot drop noted NEUROLOGICAL: Patient is awake, alert and oriented x2-3. diffusely weak. - Labs CBC & Chem 7: 07/05/21 04:37 07/05/21 04:37 Assessment and Plan Assessment: Acute urinary tract infection with strep agalactiea and sepsis, present on admission Change in mental status, acute metabolic encephalopathy, present on admission, possibly secondary to dementia and sepsis gait dysfunction Possible underlying dementia possible senile versus vascular Possible left foot drop Acute talus fracture in the right ankle, closed, on splint Possible Parkinson's Increased WBC, improved Hypertension History of bladder surgery history of hysterectomy Full code Plan: Recommend to continue with current medications and symptomatic treatment. Patient continues to be weak and will continue with conservative management of the right talus fracture with orthopedics evaluation. Recommend continued equalizer boot use with outpatient follow up in the clinic in 2-3 weeks. [id number] denied and social work made aware and started the appeal process and awaiting response. Family aware of possible denial and also social work di scussed starting medicaid application process to assist with placement for ECF for rehab. Patient has been working with physical therapy daily and needs aggressive therapy at ECF for continued strength and mobility. Continue with weightbearing as instructed by orthopedics and instructed the patient to continue with left foot drop exercises. Due to multiple complex medical issues, prognosis remains guarded.
[2021-07-11] MEDS: THIAMINE 100 MG TAB PO SCH (07:33)
[2021-07-11] MEDS: DOCUSATE 100 MG CAP PO SCH (07:33)
[2021-07-11] MEDS: HEPARIN SODIUM,PORCINE/PF 5,000 UNIT/0.5 ML SYRINGE SQ SCH ×2 (07:34→20:26)
[2021-07-11] MEDS: ATORVASTATIN 20 MG TAB PO SCH (07:34)
[2021-07-11] MEDS: amLODIPine 5 MG TAB PO SCH ×2 (07:34→20:26)
[2021-07-11] MEDS: ASPIRIN 81 MG PO SCH (07:34)
[2021-07-11] MEDS: FOLIC ACID 1 MG TAB PO SCH (07:34)
[2021-07-11] MEDS: PANTOPRAZOLE 40 MG TABLET PO SCH (07:34)
[2021-07-11] MEDS: MULTIVITAMINS, THERA 1 EACH TAB PO SCH (07:34)
[2021-07-11] MEDS: CEPHALEXIN 250 MG CAP PO SCH ×4 (07:34→21:04)
[2021-07-11] MEDS: DONEPEZIL 10 MG TAB PO SCH (07:34)
[2021-07-12] MEDS: THIAMINE 100 MG TAB PO SCH (07:33)
[2021-07-12] MEDS: CEPHALEXIN 250 MG CAP PO SCH ×4 (07:33→20:06)
[2021-07-12] MEDS: MULTIVITAMINS, THERA 1 EACH TAB PO SCH (07:33)
[2021-07-12] MEDS: HEPARIN SODIUM,PORCINE/PF 5,000 UNIT/0.5 ML SYRINGE SQ SCH ×2 (07:33→20:06)
[2021-07-12] MEDS: DONEPEZIL 10 MG TAB PO SCH (07:33)
[2021-07-12] MEDS: amLODIPine 5 MG TAB PO SCH ×2 (07:34→20:06)
[2021-07-12] MEDS: ATORVASTATIN 20 MG TAB PO SCH (07:34)
[2021-07-12] MEDS: ASPIRIN 81 MG PO SCH (07:34)
[2021-07-12] MEDS: DOCUSATE 100 MG CAP PO SCH (07:34)
[2021-07-12] MEDS: PANTOPRAZOLE 40 MG TABLET PO SCH (07:34)
[2021-07-12] MEDS: FOLIC ACID 1 MG TAB PO SCH (07:34)
[2021-07-13] MEDS: amLODIPine 5 MG TAB PO SCH ×2 (08:24→19:49)
[2021-07-13] MEDS: FOLIC ACID 1 MG TAB PO SCH (08:24)
[2021-07-13] MEDS: MULTIVITAMINS, THERA 1 EACH TAB PO SCH (08:24)
[2021-07-13] MEDS: PANTOPRAZOLE 40 MG TABLET PO SCH (08:24)
[2021-07-13] MEDS: ASPIRIN 81 MG PO SCH (08:24)
[2021-07-13] MEDS: DOCUSATE 100 MG CAP PO SCH (08:24)
[2021-07-13] MEDS: ATORVASTATIN 20 MG TAB PO SCH (08:24)
[2021-07-13] MEDS: HEPARIN SODIUM,PORCINE/PF 5,000 UNIT/0.5 ML SYRINGE SQ SCH ×2 (08:24→19:49)
[2021-07-13] MEDS: THIAMINE 100 MG TAB PO SCH (08:25)
[2021-07-13] MEDS: CEPHALEXIN 250 MG CAP PO SCH ×4 (08:25→19:49)
[2021-07-13] MEDS: DONEPEZIL 10 MG TAB PO SCH (08:25)
[2021-07-13] MEDS: ACETAMINOPHEN TAB 325 MG TAB PO PRN (08:33)
--- NOTE | 2021-07-13 16:32 | P.PN ---
Subjective Progress Note Date: 07/13/21 This is an 80-year-old female who was recently admitted with acute urinary tract infection with strep agalactiae also having a right ankle fracture and being closely monitored. Orthopedics is following closely and have recommended conservative management with a boot to the right lower extremity with outpatient follow up in 2-3 weeks for evaluation and repeat xrays. Patient continues to be confused and weak and is awaiting authorization from insurance to [facility]. Social work following. Repeat urinalysis ordered and pending. 07/07/2021 Patient Is seen in follow-up this morning and discussed with nursing staff about obtaining urinalysis and repeat urinalysis shows some nitrates otherwise negativ e and will continue on IV ceftriaxone and we'll transition to oral antibiotics on discharge. Patient continues with equalizer boot and orthopedics following. Patient to continue with heparin subcu and does take daily aspirin 81 mg. Patient is awaiting for authorization from insurance and has been accepted to [facility] for PT/OT therapy. 07/08/2021 Patient is seen and evaluated in follow-up with no acute overnight issues. Patient is maintained on IV ceftriaxone and denies any difficulty or burning with urination. Patient continues to await authorization from insurance to [facility] for continued PT/OT therapy. Blood pressure continues to be elevated and will add additional dose of Norvasc at night and monitor closely. 07/09/2021 Patient is seen in follow-up this morning currently sitting up in the chair with bilateral lower extremities elevated. Patient has been working with physical therapy along with occupational therapy and needs rehab continued PT/OT therapy as she continues to be weak requiring assistance and also difficult to maintain weightbearing on that right lower extremity. Patient does have equalizer boot in place of the right lower extremity with orthopedics following. Left foot noted with slight foot drop and needs aggressive therapy to maintain mobility. Patient continues on IV antibiotics and we'll transition to oral as patient now has no IV access. Patient denies any burning or dysuria with urination. Patient states she is tolerating diet with no reports of nausea or vomiting noted. 07/10/2021 Patient is seen and evaluated in follow up sitting up in the chair. Peer to peer denied through insurance and awaiting appeal. Family is aware that patient may have to return home with homecare and family daughter, caregiver is working on medicaid application to assist patient placement. Patient has been working with physical therapy daily. Continued equalizer boot to the right lower extremity with toe touch weightbearing restrictions. Orthopedics planning outpatient follow up in 2 weeks. Patient currently maintained on keflex and will continue. 07/13/2021 Patient is seen in follow-up this morning currently sitting on the bedside commode continues to require assistance per nursing staff and would benefit from an ECF for some strength and mobility although was denied by insurance and currently awaiting appeal process for possible placement at [facility]. Social work discussed with the patient's family, her daughter, who is her caregiver about possible discharging home with home care while awaiting for Medicaid application to go through. Patient is continued on oral Keflex with no further reports of any dysuria noted. Patient's vital signs are stable. Patient is afebrile. Review of systems: Constitutional: reports of fatigue, no reports of fever, or chills Cardiovascular: No reports of chest pain or palpitations Respiratory: No reports of shortness of breath or cough GI: No reports of nausea, vomiting, or diarrhea : No reports of dysuria or retention Neurovascular: reports generalized weakness All medications have been reviewed Objective - Vital Signs Vital signs: Vital Signs Temp 97.7 F 07/13/21 07:45 Pulse 71 07/13/21 07:45 Resp 18 07/13/21 07:45 BP 146/78 07/13/21 07:45 Pulse Ox 97 07/13/21 07:45 Intake & Output 07/12/21 07/13/21 07/13/21 18:59 06:59 18:59 Output Total 700 Balance -700 Output: Urine 700 Other: Voiding Method Diaper Diaper Diaper External Catheter External Catheter External Catheter # Bowel Movements 1 - Exam Gen: This is a 80-year-old female awake, flat affect noted, alert and oriented 2-3, thin built HEENT: Head is atraumatic, normocephalic. Pupils equal, round. Sclerae is anicteric. NECK: Supple. No JVD. No lymphadenopathy. No thyromegaly. LUNGS: diminished breath sounds bilaterally. No wheezes or rhonchi. No in tercostal retractions. HEART: Regular rate and rhythm. No murmur. ABDOMEN: Soft. Bowel sounds are present. No masses. No tenderness. EXTREMITIES: No pedal edema. No calf tenderness. right foot equalizer boot noted with positive pulses noted and able to move toes NEUROLOGICAL: Patient is awake, alert and oriented x2-3. diffusely weak. - Labs CBC & Chem 7: 07/05/21 04:37 07/05/21 04:37 Assessment and Plan Assessment: Acute urinary tract infection with strep agalactae and sepsis, present on admission Change in mental status, acute metabolic encephalopathy, present on admission, possibly secondary to dementia and sepsis gait dysfunction Possible underlying dementia possible senile versus vascular Possible left foot drop Acute talus fracture in the right ankle, closed, on splint Possible Parkinson's Increased WBC, improved Hypertension History of bladder surgery history of hysterectomy Full code Plan: Recommend to continue with current medications and symptomatic treatment. Patient continues to be weak and will continue with conservative management of the right talus fracture with orthopedics evaluation. Recommend continued equalizer boot use with outpatient follow up in the clinic in 2-3 weeks. [id number] denied and social work made aware and started the appeal process and awaiting response. Per [facility] liaison denial of [id number] was just received today and appeal process started and awaiting determination. Family aware of possible denial and also social work discussed starting medicaid application process to assist with placement for ECF for rehab. Patient has been working with physical therapy daily and needs aggressive therapy at ECF for continued strength and mobility. Continue with weightbearing toe touching with the right lower extremity as instructed by orthopedics. Due to multiple complex medical issues, prognosis remains guarded.
[2021-07-14] MEDS: ACETAMINOPHEN TAB 325 MG TAB PO PRN (06:29)
[2021-07-14 07:51] VITALS: BP 153/80; PULSE 71; RESP 17; TEMP 97.2
[2021-07-14] MEDS: CEPHALEXIN 250 MG CAP PO SCH ×2 (09:01→14:15)
[2021-07-14] MEDS: MULTIVITAMINS, THERA 1 EACH TAB PO SCH (09:02)
[2021-07-14] MEDS: HEPARIN SODIUM,PORCINE/PF 5,000 UNIT/0.5 ML SYRINGE SQ SCH (09:02)
[2021-07-14] MEDS: FOLIC ACID 1 MG TAB PO SCH (09:04)
[2021-07-14] MEDS: THIAMINE 100 MG TAB PO SCH (09:04)
[2021-07-14] MEDS: DOCUSATE 100 MG CAP PO SCH (09:04)
[2021-07-14] MEDS: ATORVASTATIN 20 MG TAB PO SCH (09:04)
[2021-07-14] MEDS: ASPIRIN 81 MG PO SCH (09:04)
[2021-07-14] MEDS: amLODIPine 5 MG TAB PO SCH (09:04)
[2021-07-14] MEDS: DONEPEZIL 10 MG TAB PO SCH (09:04)
[2021-07-14] MEDS: PANTOPRAZOLE 40 MG TABLET PO SCH (09:04)
--- NOTE | 2021-07-14 12:25 | XR ---
EXAMINATION TYPE: XR ankle limited LT DATE OF EXAM: 07/14/2021 COMPARISON: None HISTORY: Discoloration, pain TECHNIQUE: 2 view right ankle FINDINGS: No acute displaced fractures are evident. Ankle mortise is visualized appears intact. There is diffuse soft tissue swelling over the lateral malleolus. Small plantar calcaneal heel spur is pre sent. Vascular calcification is noted. Follow up exams can be performed 7-10 days, for continued pain IMPRESSION: 1. Soft tissue swelling lateral malleolus.
--- NOTE | 2021-07-14 13:31 | P.DS ---
Providers Date of admission: 07/07/21 10:26 Expected date of discharge: 07/14/21 Attending physician: Ruiz Estrella MD Primary care physician: Kate Roche Hospital Course: Final diagnosis Acute urinary tract infection with strep agalactae and sepsis, present on admission Change in mental status, acute metabolic encephalopathy, present on admission, possibly secondary to dementia and sepsis gait dysfunction Possible underlying dementia possible senile versus vascular Possible left foot drop Acute talus fracture in the right ankle, closed, on splint Possible Parkinson's Increased WBC, improved Hypertension History of bladder surgery history of hysterectomy Full code Discharge disposition Patient is being discharged in a stable condition with guarded prognosis to [facility] for continued PT/OT therapy. Patient will follow-up with Dr. Carnes in the outpatient setting upon discharge. Patient normally follows with Dr. Roche in the outpatient setting and will upon discharge from [facility]. Patient to follow-up with orthopedics Dr. Mendes in 2 weeks as discussed. Patient will continue with oral Keflex 4 times daily for the next 3 days and then may discontinue. Total time taken is greater than 35 minutes. Hospital course This is an 80-year-old female who was recently admitted with acute urinary tract infection with strep agalactiae also having a right ankle fracture and being closely monitored. Orthopedics is following closely and have recommended conservative management with a boot to the right lower extremity with outpatient follow up in 2-3 weeks for evaluation and repeat xrays. Patient continues to be confused and weak and is awaiting authorization from insurance to [facility]. Social work following. Repeat urinalysis ordered and pending. 07/07/2021 Patient Is seen in follow-up this morning and discussed with nursing staff about obtaining urinalysis and repeat urinalysis shows some nitrates otherwise negative and will continue on IV ceftriaxone and we'll transition to oral antibiotics on discharge. Patient continues with equalizer boot and orthopedics following. Patient to continue with heparin subcu and does take daily aspirin 81 mg. Patient is awaiting for authorization from [facility] and has been accepted to [facility] for PT/OT therapy. 07/08/2021 Patient is seen and evaluated in follow-up with no acute overnight issues. Patient is maintained on IV ceftriaxone and denies any difficulty or burning with urination. Patient continues to await authorization from insurance to [facility] for continued PT/OT therapy. Blood pressure continues to be elevated and will add additional dose of Norvasc at night and monitor closely. 07/09/2021 Patient is seen in follow-up this morning currently sitting up in the chair with bilateral lower extremities elevated. Patient has been working with physical therapy along with occupational therapy and needs rehab continued PT/OT therapy as she continues to be weak requiring assistance and also difficult to maintain weightbearing on that right lower extremity. Patient does have equalizer boot in place of the right lower extremity with orthopedics following. Left foot noted with slight foot drop and needs aggressive therapy to maintain mobility. Patient continues on IV antibiotics and we'll transition to oral as patient now has no IV access. Patient denies any burning or dysuria with urination. Patient states she is tolerating diet with no reports of nausea or vomiting noted. 07/10/2021 Patient is seen and evaluated in follow up sitting up in the chair. Peer to peer denied through insurance and awaiting appeal. Family is aware that patient may have to return home with homecare and family daughter, caregiver is working on medicaid application to assist patient placement. Patient has been working with physical therapy daily. Continued equalizer boot to the right lower extremity with toe touch weightbearing restrictions. Orthopedics planning outpatient follow up in 2 weeks. Patient currently maintained on keflex and will continue. 07/13/2021 Patient is seen in follow-up this morning currently sitting on the bedside commode continues to require assistance per nursing staff and would benefit from an ECF for some strength and mobility although was denied by insurance and currently awaiting appeal process for possible placement at [facility]. Social work discussed with the patient's family, her daughter, who is her caregiver about possible discharging home with home care while awaiting for Medicaid application to go through. Patient is continued on oral Keflex with no further reports of any dysuria noted. Patient's vital signs are stable. Patient is afebrile. 07/14/2021 Patient is seen in follow-up with daughter at the bedside. Patient having some left foot discoloration with positive pulses and having some tenderness when standing and ordered x-ray of the ankle which was negative for any acute displaced fracture and there is some diffuse soft tissue swelling over the left lateral malleolus with a small plantar calcaneal heel spur that is present. Patient will continue with toe-touch weightbearing per orthopedics recommendations of the right lower extremity along with the equalizer boot. Patient to continue with foot drop exercises of the left lower extremity and physical therapy and will follow-up with orthopedics Dr. Mendes in his office in 2 weeks for reevaluation and possible repeat x-rays. Patient was being treated for UTI and denies any further symptoms of burning with urination or difficulty in urination and will continue with oral Keflex for the next 3 days and then may discontinue to complete the course. Currently no reports of chest pain, shortness of breath, or palpitations. Patient is afebrile. No reports of nausea or vomiting and patient is tolerating diet. Patient will be going to [facility] today. On exam vital signs are stable. Cardio S1, S2 are muffled. Respiratory system shows diminished breath sounds at the bases with no wheezing or rhonchi noted. Abdomen is soft and nontender. Nervous system shows diffuse weakness. Please refer to medication reconciliation sheet for a list of medications. Patient Condition at Discharge: Stable Plan - Discharge Summary New Discharge Prescriptions: No Action Docusate [Colace] 100 mg PO DAILY Aspirin EC [Ecotrin Low Dose] 81 mg PO DAILY Alendronate Sodium [Fosamax] 70 mg PO SA Atorvastatin [Lipitor] 20 mg PO DAILY Donepezil [Aricept] 10 mg PO DAILY Loratadine [Claritin] 10 mg PO DAILY Discharge Medication List Aspirin EC [Ecotrin Low Dose] 81 mg PO DAILY 03/21/17 [History] Docusate [Colace] 100 mg PO DAILY 03/21/17 [History] Alendronate Sodium [Fosamax] 70 mg PO SA 07/02/21 [History] Atorvastatin [Lipitor] 20 mg PO DAILY 07/02/21 [History] Donepezil [Aricept] 10 mg PO DAILY 07/02/21 [History] Loratadine [Claritin] 10 mg PO DAILY 07/02/21 [History] Follow up Appointment(s)/Referral(s): Kate Roche III, MD [Primary Care Provider] - 1-2 days Jaylon Mendes MD [STAFF PHYSICIAN] - 2 Weeks Activity/Diet/Wound Care/Special Instructions: Toe-touch weightbearing right lower extremity with walker. Maintain equalizer boot right foot when up. May remove for bathing.
== END 2021-07-14 15:07 | DRG 871 ==
LOC: EC 07:42 → 6NMEDSUR 13:09 → OBSVTOIN 07-07 10:26
PROVIDERS: ADMIT Internal Medicine; ATTEND Internal Medicine
DX: A40.1 Sepsis due to streptococcus, group B (principal); G93.41 Metabolic encephalopathy; N39.0 Urinary tract infection, site not specified; I10 Essential (primary) hypertension; M21.379 Foot drop, unspecified foot; S82.891A Other fracture of right lower leg, initial encounter for closed fracture; S92.101A Unspecified fracture of right talus, initial encounter for closed fracture; S96.911A Strain of unspecified muscle and tendon at ankle and foot level, right foot, initial encounter; G20 Parkinson's disease; Z79.82 Long term (current) use of aspirin; Z79.83 Long term (current) use of bisphosphonates; Z79.899 Other long term (current) drug therapy; Z90.710 Acquired absence of both cervix and uterus
CPT/HCPCS: 36415; 70450; 80048; 80053; 81001; 83605; 84484; 84550; 85025; 85610; 85730; 87086; 87635; 93005; 99285

== ENCOUNTER → 2021-11-25 | Outpatient (CLI) | payer MEDICARE, OTHER ==
--- NOTE | 2021-11-25 17:32 | MR ---
EXAMINATION TYPE: MR brain wo con DATE OF EXAM: 11/25/2021 COMPARISON: CT 07/02/2021 HISTORY: 81-year-old female Bradykinesia, dizziness and giddiness, abnormal gait. TECHNIQUE: Multiplanar, multisequence images of the brain and brainstem were acquired before without IV contrast. Diffusion-weighted imaging is performed. FINDINGS: No evidence for acute infarction, hemorrhage, mass, mass effect, midline shift, herniation, effacemen t of basal cisterns, or extra-axial fluid collection. [id number] volume loss along the bilateral cerebral convexities. Additional mild central cerebr al atrophy and secondary prominence to the ventricular system. Juan R's ratio calculated at 0.34 Major intracranial flow voids are intact. The left vertebral artery is dominant. T2/FLAIR weighted sequences show mild to moderate patchy periventricular bright signal change especia lly in the periatrial region of the lateral ventricles. Midline structures demonstrate normal morphology. The craniocervical junction is normal. Post contrast images demonstrate no evidence of pathologic enhancement. Dural venous sinuses are pat ent. Mild mucosal thickening ethmoid air cells and floor of the right maxillary sinus. Rightward nasal sep pepe deviation. Globes are intact. IMPRESSION: 1. Moderate generalized atrophy. Secondary mild prominence to the ventricular system. Volume loss may be slightly progressed from 07/02/2021. Correlate to exclude a component of NPH. 2. Mild to moderate patchy vertebral chronic small vessel ischemic disease. No acute intracranial abn ormality seen. 3. Mild chronic ethmoid sinus disease. Rightward nasal septal deviation.
== END | disposition home or self-care (01) ==
LOC: RADMRIMAIN 14:24
PROVIDERS: ATTEND Psychiatry & Neurology Neurology
DX: I67.82 Cerebral ischemia (principal); G31.89 Other specified degenerative diseases of nervous system; J34.2 Deviated nasal septum; J32.2 Chronic ethmoidal sinusitis
CPT/HCPCS: 70551